=== PATIENT | female | born 1955 | race Caucasian/White ===

== ENCOUNTER 2023-05-20 19:04 | Inpatient (IN) | payer OTHER, SELFPAY ==
[2023-05-20] VITALS (22 sets, daily range): BP systolic 92–134; BP diastolic 54–77; PULSE 99–138; RESP 22–28; TEMP 36.6–38.6; O2SAT 88–94; BMI 24.0; BMI 22.6
--- NOTE | 2023-05-20 19:34 | CRLHL7_ITS ---
For Patients: As a result of the Cures Act, medical imaging exams and procedure reports are released immediately into your electronic medical record. You may view this report before your referring provider. If you have questions, please contact your health care provider. INDICATION: Cough, fever, shortness of breath TECHNIQUE: Chest 2 view. Permanently recorded images are archived. COMPARISON: None. FINDINGS: Cardiovascular and mediastinum: Atherosclerotic thoracic aorta. Normal heart size. Lungs and pleural spaces: Patchy area of consolidation is left lower lobe and also likely in the lingula and right middle lobe. No definite pleural effusion. No pneumothorax. Bones and soft tissues: Unremarkable for age. IMPRESSION: Left lower lobe, and likely lingular and right middle lobe, pneumonia. Recommend follow-up imaging after treatment to ensure resolution. Dictated by Xiang Lee MD @ 05/20/2023 8:23:26 PM (Electronically Signed)
--- NOTE | 2023-05-20 19:39 | ED.GENADULT ---
HPI - General Adult General Chief complaint: Shortness of Breath/Dyspnea Stated complaint: Shortness of breath, 88 ox sat. Time Seen by Provider: 05/20/23 19:24 History of Present Illness HPI narrative: This 67-year-old female comes in with cough, shortness of breath, and tachycardia. She arrives also with a fever and a temperature of 101.5? F. She states that she began to feel ill a week ago. Prior to this she was in good health other than chronic lymphocytic leukemia. She arrives with oximetry at 88% on room air. With nasal cannula oxygen she improved just a little bit to to 90% oximetry. She continues to have tachycardia with heart rate around 135-140 beats per minute. She does not describe any chest pain. Related Data Allergies Allergy/AdvReac Type Severity Reaction Status Date / Time No Known Drug Allergies Allergy Verified 05/20/23 19:20 Review of Systems Status of ROS: Reports: 10 or more systems reviewed and unremarkable except as noted in History and below Narrative: Constitutional: No weight gain or loss. Eyes: No discharge. No vision changes. HENT: No congestion, no sore throat, no ear pain. Cardiovascular: No chest pain, no palpitations. Respiratory: Cough and shortness of breath. Gastrointestinal: No abdominal pain, no vomiting, no diarrhea. Genitourinary: No dysuria, no hematuria. Musculoskeletal: Normal range of motion. Skin: No rashes, no pruritis. Neurological: No dizziness, weakness, sensory change, speech change. Endo/Heme/Allergies: No bruising or bleeding. No polydipsia. Pysch: no suicidality, no anxiety, no insomnia. All other systems reviewed and are negative. Exam Narrative: Exam Narrative: Constitutional: Well-developed, well-nourished, no acute distress. HEENT: Normocephalic, atraumatic. Neck: Normal range of motion. Nontender. Supple. Heart: Regular. No murmurs. Tachycardia Intact distal pulses. Lungs: Clear to auscultation. No chest discomfort. No wheezes, rhonchi, or rales. Respiratory rate 24. Abdomen: Normal bowel sounds. Nontender. No rebound tenderness. Genitalia: Deferred. Back: No midline tenderness. Normal range of motion. Extremities: Normal range of motion. No injury. Skin: Intact. No rash. Warm. No erythema or pallor. Neurologic: No altered sensation. No weakness. Alert and oriented. Psychiatric: No suicidality. No anxiety or depression. No insomnia. Nursing notes and vitals signs are reviewed. Const: Vital Signs, click to edit/add: Vital Signs - 24 hr 05/20/23 19:15 05/20/23 19:31 05/20/23 20:06 Temperature 101.5 F H Pulse Rate 135 H Pulse Rate [Pulse Oximeter] 138 H Respiratory Rate 24 26 H Blood Pressure Blood Pressure [Ri ght Upper Arm] 134/77 123/66 Pulse Oximetry 91 88 91 Oxygen Delivery Me thod Room Air Nasal Cannula Oxygen Flow Rate 2 05/20/23 20:10 05/20/23 20:25 05/20/23 20:30 Temperature Pulse Rate 122 H Pulse Rate [Pulse Oximeter] Respiratory Rate 26 H Blood Pressure Blood Pressure [Ri ght Upper Arm] Pulse Oximetry 90 89 90 Oxygen Delivery Me thod Nasal Cannula Nasal Cannula Oxygen Flow Rate 3 3 05/20/23 20:31 05/20/23 20:41 05/20/23 20:44 Temperature Pulse Rate 123 H 118 H 115 H Pulse Rate [Pulse Oximeter] Respiratory Rate Blood Pressure 94/57 L 92/55 L 103/57 L Blood Pressure [Ri ght Upper Arm] Pulse Oximetry 90 88 90 Oxygen Delivery Me thod Oxygen Flow Rate 05/20/23 20:45 05/20/23 20:47 05/20/23 20:50 Temperature 100.5 F H Pulse Rate 114 H Pulse Rate [Pulse Oximeter] Respiratory Rate 24 Blood Pressure Blood Pressure [Ri ght Upper Arm] Pulse Oximetry 89 90 Oxygen Delivery Me thod Nasal Cannula Oxygen Flow Rate 4 05/20/23 20:55 Temperature Pulse Rate Pulse Rate [Pulse Oximeter] Respiratory Rate 24 Blood Pressure Blood Pressure [Ri ght Upper Arm] Pulse Oximetry 92 Oxygen Delivery Me thod OxyMask Oxygen Flow Rate 8 Course Vital Signs Vital signs: Initial Vital Signs Temperature 101.5 F H 05/20/23 19:15 Temperature Source Temporal Artery Scan 05/20/23 19:15 Pulse Rate 138 H 05/20/23 19:15 Pulse Rhythm Regular 05/20/23 19:15 Respiratory Rate 24 05/20/23 19:15 Blood Pressure 134/77 05/20/23 19:15 Blood Pressure Mean 96 05/20/23 19:15 Pulse Oximetry 91 05/20/23 19:15 Oxygen Delivery Method Room Air 05/20/23 19:15 Vital Signs Temperature 101.5 F H 05/20/23 19:15 Pulse Rate 138 H 05/20/23 19:15 Respiratory Rate 24 05/20/23 19:15 Blood Pressure 134/77 05/20/23 19:15 Pulse Oximetry 91 05/20/23 19:15 Oxygen Delivery Method Room Air 05/20/23 19:15 Temperature 100.5 F H 05/20/23 20:50 Pulse Rate 114 H 05/20/23 20:45 Respiratory Rate 24 05/20/23 20:55 Blood Pressure 103/57 L 05/20/23 20:44 Pulse Oximetry 92 05/20/23 20:55 Oxygen Delivery Method OxyMask 05/20/23 20:55 Oxygen Flow Rate 8 05/20/23 20:55 Medical Decision Making MDM Narrative Medical decision making narrative: This patient arrives with shortness of breath and fever. She does smoke half a pack a day. Her oximetry on room air initially was at around 88 89% with tachycardia. With 4 L nasal cannula she improved to around 90% but her heart rate has decreased to around 110 beats per minute. An IV is established where she did receive a L of normal saline and labs are acquired. Her white count is excessively high due to his CLL. Chest x-ray does show sign of infiltrate bilaterally. I spoke with the hospitalist specialty finishing utility person, Dr. Elizondo, who agrees to her admission and requested CT imaging of her chest. This result is pending at the end of my shift as are some other lab results including lactate, blood cultures, and metabolic panel. After blood cultures are acquired the patient received IV doses of Rocephin and Zithromax. She did also receive a L of normal saline intravenously and will be ruled out for sepsis according to guidelines. Lab Data Labs: Lab Results 05/20/23 05/20/23 05/20/23 Range/Units 19:35 20:00 20:50 WBC 106.77 H* (4.50-11.00) K/uL RBC 4.12 (4.00-5.20) m/uL Hgb 13.3 (12.0-16.0) gm/dL Hct 41.2 (33.0-51.0) % MCV 100 (80-100) fL MCH 32 (26-34) pg MCHC 32 (32-36) gm/dL RDW Coeff of Hien 14.1 (11.5-15.5) % Plt Count 158 (140-440) K/uL Neut % (Auto) 5.5 L (42.0-72.0) % Lymph % (Auto) 94.1 H (20-44) % [place] % (Auto) 0.3 (0.0-11.0) % Eos % (Auto) 0.0 (0.0-7.0) % Baso % (Auto) 0.0 (0.0-3.0) % Neut # (Auto) 5.90 (1.7-7.0) K/uL Lymph # (Auto) 100.50 H (0.90-2.90) K/uL [place] # (Auto) 0.30 (0.00-0.90) K/UL Eos # (Auto) 0.00 (0.00-0.50) K/uL Baso # (Auto) 0.00 (0.00-0.30) K/uL Abs Immat Gran (auto) 0.10 (0.00-0.30) K/uL Imm/Tot Granulo (auto) 0.1 % Sodium 130 L (135-149) mmol/L Potassium 3.4 L (3.6-5.1) mmol/L Chloride 98 (96-114) mmol/L Carbon Dioxide 18 L (20-32) mmol/L Anion Gap 14 (7-15) mEq/L BUN 29 (7-30) mg/dL Creatinine 1.2 (0.5-1.5) mg/dL Estimated Creat Clear 45.26 Estimated GFR 49 ml/min Glucose 184 H (60-115) mg/dL Lactate 1.0 (0.5-1.9) mmol/L Calcium 8.6 (8.4-10.6) mg/dL C-Reactive Protein 8.8 H (0.5-1.0) mg/dL POC Troponin I 0.00 L (0.01-0.04) ng/ml ECG Data Attestation: I personally reviewed and interpreted this ECG as follows: Interpretation: Sinus tachycardia, rate 137 beats per minute. Incomplete right bundle-branch block. There are no specific ST or T-wave abnormalities. Discharge Plan Discharge Clinical Impression: Chronic lymphocytic leukemia, Hypoxia, Pneumonia Patient Disposition: Admitted As Inpatient Condition: Unchanged Follow Up/Referrals: Provider,Not a Local [Primary Care Provider] -
[2023-05-20] MEDS: ACETAMINOPHEN 500 MG TABLET 1000 MG PO (19:56)
[2023-05-20 20:15] LABS: Hematocrit 41.2 % (33.0-51.0); Hemoglobin* 13.3 gm/dL (12.0-16.0); Immature Granulocytes Pct Auto 0.1 %; Lymphocytes Percent Auto 94.1 % (20-44); Mean Corpuscular HGB Conc 32 gm/dL (32-36); Mean Corpuscular Hemoglobin 32 pg (26-34); Mean Corpuscular Volume 100 fL (80-100); Monocytes Percent Auto 0.3 % (0.0-11.0); Neutrophils Percent Auto 5.5 % (42.0-72.0); Platelet Count* 158 K/uL (140-440); RDW Coefficient of Variation % 14.1 % (11.5-15.5); Red Blood Count 4.12 m/uL (4.00-5.20)
[2023-05-20 20:18] LABS: Slide Review Reflex Yes
[2023-05-20 20:19] LABS: White Blood Count* 106.77 K/uL (4.50-11.00)
[2023-05-20 20:41] LABS: Chloride* 98 mmol/L (96-114); Potassium* 3.4 mmol/L (3.6-5.1); Sodium* 130 mmol/L (135-149)
[2023-05-20 20:43] LABS: Creatinine* 1.2 mg/dL (0.5-1.5); Est. Creatinine Clearance* 45.26; Estimated Glomerular Filt Rate 49 ml/min
[2023-05-20 20:44] LABS: Anion Gap 14 mEq/L (7-15); Blood Urea Nitrogen* 29 mg/dL (7-30); Carbon Dioxide* 18 mmol/L (20-32); Glucose* 184 mg/dL (60-115)
[2023-05-20 20:45] LABS: Calcium* 8.6 mg/dL (8.4-10.6)
[2023-05-20 20:47] LABS: C Reactive Protein* 8.8 mg/dL (0.5-1.0)
--- NOTE | 2023-05-20 20:56 | CRLHL7_ITS ---
For Patients: As a result of the Century Cures Act, medical imaging exams and procedure reports are released immediately into your electronic medical record. You may view this report before your referring provider. If you have questions, please contact your health care provider. INDICATION: Shortness of breath. TECHNIQUE: CT chest PE was acquired with 95 cc Isovue 370 IV contrast. Permanently recorded images are archived. COMPARISON: None. FINDINGS: Heart and vasculature: Contrast opacification of the pulmonary arterial tree is adequate. No sign of pulmonary embolism. Heart size is normal. Thoracic aorta and pulmonary artery are normal in caliber. Lungs and pleura: Subsegmental atelectasis within the medial right middle lobe and inferior lingula. Patchy consolidation in the right lower lobe. No pleural effusion or pneumothorax. Diffuse bronchial wall thickening in the lung bases with foci of mucous plugging. No pleural effusions or pneumothorax. Lymph nodes/mediastinum: Prominent bihilar and mediastinal lymph nodes. No pathologically enlarged lymph nodes. Chest wall: No masses. Thyroid: Unremarkable. Upper abdomen: No acute or significant findings. 2 cm masslike thickening of the left adrenal gland likely represents a lipid rich adenoma. Bones: Unremarkable for age. IMPRESSION: No pulmonary embolism. Patchy consolidation in the right lower lobe compatible with pneumonia. Diffuse bronchial wall thickening in the lung bases, with foci of mucous plugging, compatible with bronchitis. Subsegmental atelectasis within the medial right middle lobe and inferior lingula, possibly sequela of chronic atypical infection. Please note that all CT scans at this facility use dose modulation, iterative reconstruction, and/or weight-based dosing when appropriate to reduce radiation dose to as low as reasonably achievable. Dictated by Xiang Lee MD @ 05/20/2023 10:06:36 PM (Electronically Signed)
[2023-05-20 21:08] LABS: PCR FLU A Negative PCR FLU A (Negative); PCR FLU B Negative PCR FLU B (Negative); PCR RSV Negative PCR RSV (Negative)
[2023-05-20 21:11] LABS: SARS PCR* Negative SARS-CoV-2 (Negative)
[2023-05-20 21:12] LABS: Slide Review Acceptable Review (Acceptable)
[2023-05-20 21:23] LABS: D Dimer Quantitative* > 20.00 ug/ml (0.00-0.50)
[2023-05-20] MEDS: 0.9 % SODIUM CHLORIDE 1000 ml 1,000 ML IV (21:33)
[2023-05-20] MEDS: cefTRIAXone 1 GM in 0.9 % SODIUM CHLORIDE Mini-bag 100 ML IVPB (21:33)
--- NOTE | 2023-05-20 21:57 | ED.NURSE ---
ER MD O2 sat goal 90s, pt maintained SpO2 >90, currently requiring 5L oxymask. Report given to Med surg. IV infusing
--- NOTE | 2023-05-20 22:42 | P.IMHP_ITS ---
Hospitalist- H&P: HPI History of Present Illness Time Seen by Provider: 22:00 Date Seen: 05/20/23 Chief complaint: Shortness of breath, hypoxic Narrative: Muriel Gutierrez is a 67 year old woman presents to the emergency department for assessment of productive cough, shortness of breath, fatigue has been evolving for the past 4 days. Has not had hemoptysis. Describes mucopurulent sputum production. Fatigues easily. Has been more sleepy. Has dyspnea with moderate exertion, which is unusual for her. She lives in [facility], in town of [place]. Her daughter and son-in-law, who live in [place], are currently traveling vacationing in [facility], for their wedding anniversary. The patient and her are taking care of their grandchildren while there parents are on their anniversary vacation. Her daughter and son-in-law will be returning home on 05/23/2023. This past 05/17/2023, she had the onset of the illness briefly described above. Her symptoms have been getting worse since. Yesterday also had chills without fever. On arrival to emergency department she does have a fever with a temperature of a 101.5? F. No recent illnesses or travel. No exposure to animals, including birds. Review of Systems Status of ROS: Reports: 10 or more systems reviewed and unremarkable except as noted in History and below Narrative: Denies angina or anginal equivalent, syncope or near syncope, orthostasis, lightheadedness, dizziness, or vertigo. Denies nausea or vomiting. Appetite has been decreased over the last few days with increasing illness. Denies abdominal pain. Bowel and bladder function are satisfactory. Denies myalgias or arthralgias. Denies rashes. Denies dysuria, urgency, frequency, hematuria. Denies constipation or diarrhea. Not exposed to others with illness. Patient has known chronic lymphocytic leukemia. Follows with a carpenter repair at the [facility] in [place], [place], and has not received any treatment for this. Her white blood cell count as typically been running between 80,000 and 90,000. [facility] Medical History (Updated 05/20/23 @ 23:04 by Edward Elizondo MD) Low back pain ?M54.50 - Low back pain, unspecified (ICD-10) Tobacco dependence ?F17.200 - Nicotine dependence, unspecified, uncomplicated (ICD-10) Chronic lymphocytic leukemia ?C91.10 - Chronic lymphocytic leukemia of B-cell type not having achieved remission (ICD-10) Social History Narrative: 05/20/2023: Lives in [facility]. Visiting family in [place], [place]. Lives with , Xiang, whom she designates as POA for health should that be warranted, . Requests full resuscitation efforts in event of cardiopulmonary demise. Smoking Status: Current every day smoker What tobacco products do you use: cigarettes Smoking packs per day: 0.5 Smoking cigarettes per day: 10.0 Second hand tobacco smoke exposure: Yes How often do you have a drink containing alcohol: never AUDIT-C Alcohol total score: 0 Non-prescribed substance use: denies use Meds Home Medications and Allergies Home Medication Comments: Acetaminophen p.r.n. low back pain Allergies Allergy/AdvReac Type Severity Reaction Status Date / Time No Known Drug Allergies Allergy Verified 05/20/23 19:20 Exam Narrative: Exam Narrative: I see her in her hospital room. She appears worn out, but comfortable and in no acute distress. Has an OxyMask with oxygen flowing at 5 liters/minute and saturations of 91-93% at rest. Vision and hearing are grossly normal. Alert and oriented to self, place, time, situation. Articulate, cooperative, friendly. Mood and affect are congruent. No icterus or conjunctival injection. Physically round and reactive to light and accommodation. Conjugate gaze. Extraocular muscles are intact. Midline nasal septum. Dry buccal mucosa. Dentition in fair repair. Neck is supple. Midline trachea. No head and neck lymphadenopathy. Varus shaped chest. Lungs with coarse rales on the right base and moderate rales in the left mid lung, scattered rhonchi, no wheezing. Chest wall excursions are full with respiratory efforts. No CVA tenderness. Heart tones with regular rhythm, normal S1-S2, without murmur, gallop, or rub. Abdomen with active bowel sounds, soft, nontender. Extremities without edema. Moves all 4 extremities. No tremor, asterixis or ataxia. Range of motion of upper and lower extremities are full. Skin is dry and intact. No rashes, petechiae, cyanosis. Const: Vital Signs, click to edit/add: Vital Signs - 24 hr 05/20/23 19:15 05/20/23 19:31 05/20/23 20:06 Temperature 101.5 F H Pulse Rate 135 H Pulse Rate [Pulse Oximeter] 138 H Respiratory Rate 24 26 H Blood Pressure Blood Pressure [Ri t Upper Arm] 134/77 123/66 Pulse Oximetry 91 88 91 Oxygen Delivery Me thod Room Air Nasal Cannula Oxygen Flow Rate 2 05/20/23 20:10 05/20/23 20:25 05/20/23 20:30 Temperature Pulse Rate 122 H Pulse Rate [Pulse Oximeter] Respiratory Rate 26 H Blood Pressure Blood Pressure [Ri t Upper Arm] Pulse Oximetry 90 89 90 Oxygen Delivery Me thod Nasal Cannula Nasal Cannula Oxygen Flow Rate 3 3 05/20/23 20:31 05/20/23 20:41 05/20/23 20:44 Temperature Pulse Rate 123 H 118 H 115 H Pulse Rate [Pulse Oximeter] Respiratory Rate Blood Pressure 94/57 L 92/55 L 103/57 L Blood Pressure [Ri t Upper Arm] Pulse Oximetry 90 88 90 Oxygen Delivery Me thod Oxygen Flow Rate 05/20/23 20:45 05/20/23 20:47 05/20/23 20:50 Temperature 100.5 F H Pulse Rate 114 H Pulse Rate [Pulse Oximeter] Respiratory Rate 24 Blood Pressure Blood Pressure [Ri t Upper Arm] Pulse Oximetry 89 90 Oxygen Delivery Me thod Nasal Cannula Oxygen Flow Rate 4 05/20/23 20:55 05/20/23 21:00 05/20/23 21:00 Temperature Pulse Rate 108 H Pulse Rate [Pulse Oximeter] Respiratory Rate 24 Blood Pressure Blood Pressure [Ri t Upper Arm] Pulse Oximetry 92 90 90 Oxygen Delivery Me thod OxyMask OxyMask Oxygen Flow Rate 8 5 05/20/23 21:01 05/20/23 21:26 05/20/23 21:30 Temperature Pulse Rate 109 H 102 H 100 Pulse Rate [Pulse Oximeter] Respiratory Rate Blood Pressure 96/55 L Blood Pressure [Ri ght Upper Arm] Pulse Oximetry 90 92 93 Oxygen Delivery Me thod Oxygen Flow Rate 05/20/23 21:32 Temperature Pulse Rate 99 Pulse Rate [Pulse Oximeter] Respiratory Rate Blood Pressure 95/60 Blood Pressure [Ri ght Upper Arm] Pulse Oximetry 93 Oxygen Delivery Me thod Oxygen Flow Rate Documenting provider has reviewed patient's vital signs: yes Hospitalist - H&P: Result Labs Labs: Short CBC 05/20/23 Range/Units 20:00 WBC 106.77 H* (4.50-11.00) K/uL Hgb 13.3 (12.0-16.0) gm/dL Hct 41.2 (33.0-51.0) % Plt Count 158 (140-440) K/uL BMP 05/20/23 20:00 Sodium 130 L Potassium 3.4 L Chloride 98 Carbon Dioxide 18 L BUN 29 Creatinine 1.2 Glucose 184 H Calcium 8.6 ECG Attestation: I personally reviewed and interpreted this ECG as follows: ECG interpretation date: 05/20/23 ECG interpretation time: 22:00 Prior ECG tracings: not available for review Interpretation: Sinus tachycardia without ischemic changes. Imaging Chest x-ray: Attestation: I have reviewed the pertinent imaging results. Radiologist's impression: IMPRESSION: Left lower lobe, and likely lingular and right middle lobe, pneumonia. Recommend follow-up imaging after treatment to ensure resolution. CT scan - chest: Attestation: I have reviewed the pertinent imaging results. Radiologist's impression: IMPRESSION: No pulmonary embolism. Patchy consolidation in the right lower lobe compatible with pneumonia. Diffuse bronchial wall thickening in the lung bases, with foci of mucous plugging, compatible with bronchitis. Subsegmental atelectasis within the medial right middle lobe and inferior lingula, possibly sequela of chronic atypical infection. Assessment and Plan Assessment and plan (1) Acute hypoxic respiratory failure: Problem comment: - differential diagnosis: COPD with community-acquired pneumonia - oxygen supplementation Status: Acute (2) Pneumonia: Problem comment: - community-acquired pneumonia treatment protocol with ceftriaxone and azithromycin started 05/20/2023 Status: Acute (3) Chronic obstructive pulmonary disease (COPD) suggested by initial evaluation: Problem comment: - ipratropium bromide and albuterol nebulizer therapy initiated - Aer[employer] device - respiratory therapy consult Status: Acute (4) Tobacco dependence: Problem comment: - 05/20/2023: 1/2 ppd for 40 years, actively smoking still. - nicotine patch and nicotine gum while in hospital Status: Acute (5) Chronic lymphocytic leukemia: Problem comment: - obtain outside medical records - monitor while in hospital - I am postulating that the current rise in the white blood cell count is in part related to the acute infection and also in part related to the dehydrated state. Both will be treated. Status: Acute (6) Dehydration: Problem comment: - gentle IV hydration - will check orthostatic blood pressures and pulses in the morning of 05/21/2023 - daily weights Status: Acute Plan 1. Reviewed my impression with the patient. 2. Answered her questions. 3. Patient is agreeable with above stated plans and recommendations.
[2023-05-20] MEDS: AZITHROMYCIN 100 MG/ML inj 500 MG IVPB (22:55)
[2023-05-21] VITALS (33 sets, daily range): BP systolic 91–142; BP diastolic 49–89; PULSE 57–129; RESP 24–30; TEMP 36.7–38.6; O2SAT 88–97
[2023-05-21] MEDS: ENOXAPARIN 40 MG/0.4 ML INJ SUBCUT (00:14)
[2023-05-21] MEDS: NICOTINE 14 mg PATCH 1 PATCH TRANSDERMA ×2 (00:14→19:52)
[2023-05-21] MEDS: IPRAT-ALBUT 0.5-2.5 MG/3 ML NEB 1 NEB IH ×5 (00:16→19:52)
--- NOTE | 2023-05-21 02:34 | PC.NURSE ---
Up to BR w/SBA. Tachypneic upper 20's to low 30's. States her breathing feels, much better since being admitted. VSS. Oxygen is being titrated between 3-4lpm oxymask to keep sats 90-94%. Denies pain.
[2023-05-21 06:31] LABS: HCO3 VBG 19 mmol/L (21-28); Lactate* 1.2 mmol/L (0.5-1.9); PCO2 VBG 29 mmHG (40-50); PO2 VBG 28.2 mmHG (25-47); pH VBG 7.428 (7.32-7.43)
[2023-05-21 06:45] LABS: Hematocrit 37.7 % (33.0-51.0); Hemoglobin* 12.2 gm/dL (12.0-16.0); Immature Granulocytes Pct Auto 0.1 %; Lymphocytes Percent Auto 94.4 % (20-44); Mean Corpuscular HGB Conc 32 gm/dL (32-36); Mean Corpuscular Hemoglobin 32 pg (26-34); Mean Corpuscular Volume 99 fL (80-100); Monocytes Percent Auto 0.5 % (0.0-11.0); Platelet Count* 128 K/uL (140-440)
[2023-05-21 07:13] LABS: Chloride* 103 mmol/L (96-114); Potassium* 3.8 mmol/L (3.6-5.1); Sodium* 131 mmol/L (135-149)
[2023-05-21 07:15] LABS: Creatinine* 0.8 mg/dL (0.5-1.5); Est. Creatinine Clearance* 54.32; Estimated Glomerular Filt Rate 80 ml/min
[2023-05-21 07:16] LABS: Anion Gap 11 mEq/L (7-15); Blood Urea Nitrogen* 21 mg/dL (7-30); Carbon Dioxide* 17 mmol/L (20-32)
[2023-05-21 07:17] LABS: Calcium* 7.8 mg/dL (8.4-10.6); Glucose* 121 mg/dL (60-115); Magnesium* 2.1 mg/dL (1.5-2.6); Phosphorus* 1.9 mg/dL (2.5-4.5)
[2023-05-21 07:24] LABS: Troponin I* 0.02 ng/mL (0.01-0.04)
[2023-05-21 07:33] LABS: C Reactive Protein* 20.9 mg/dL (0.5-1.0); NT Pro B Type NatriureticPept* 297 pg/mL
[2023-05-21 07:44] LABS: Thyroid Stimulating Hormone* 0.199 uIU/mL (0.270-4.20)
[2023-05-21 08:10] LABS: White Blood Count* 115.44 K/uL (4.50-11.00)
[2023-05-21 08:11] LABS: Slide Review Reflex Yes
[2023-05-21 08:24] LABS: Slide Review Acceptable Review (Acceptable)
[2023-05-21] MEDS: SODIUM CHLORIDE 0.9 % (FLUSH) 10 ML SYRINGE 5 ML IVF ×2 (09:21→20:51)
[2023-05-21 09:54] LABS: Free T4 Free Thyroxine* 1.46 ng/dL (0.70-1.85)
[2023-05-21] MEDS: METOPROLOL TARTRATE 25 MG TABLET PO (11:32)
[2023-05-21] MEDS: ACETAMINOPHEN 325 MG TABLET 650 MG PO ×2 (12:00→19:52)
--- NOTE | 2023-05-21 12:25 | P.IMPN_ITS ---
Progress Note: A&P Assessment and plan (1) Acute hypoxic respiratory failure: Problem details: This appears to be primarily pneumonia and secondarily COPD causing hypoxic respiratory failure. On high-flow nasal cannulae. Not retaining CO2. Status: Acute (2) Pneumonia: Problem details: - community-acquired pneumonia treatment protocol with ceftriaxone and azithromycin started 05/20/2023. Nasal swab for MRSA. Attention to atypical infectious causes due to immune suppression from CLL. Status: Acute (3) Chronic obstructive pulmonary disease (COPD) suggested by initial evaluation: Problem details: - ipratropium bromide and albuterol nebulizer therapy initiated - Aerobika device - respiratory therapy consult Status: Acute (4) Chronic lymphocytic leukemia: Problem details: Not neutropenic. Expected lymphocytosis Status: Acute (5) Tobacco dependence: Problem details: - 05/20/2023: 1/2 ppd for 40 years, actively smoking still. - nicotine patch and nicotine gum while in hospital Status: Acute (6) Thyroid function test abnormal: Problem details: Mildly suppressed TSH with normal free T4. Likely due to acute illness. Outpatient follow-up. Status: Acute (7) Abnormal EKG: Problem details: ST depression with sinus tachycardia. Normal troponin and pro-BNP. No previous electrocardiogram to compare. Obtain echo. Low-dose metoprolol. Follow. Status: Acute Plan Continue in hospital for management of hypoxic respiratory failure from pneumonia in the context of other chronic medical problems, CLL and COPD. Time Spent With Patient Total time spent: Total time spent today is 55 minutes, 35 minutes in coordination of care discussing with patient, and other providers management of pneumonia, COPD, CLL Subjective Date Seen: 05/21/23 Interval history: 59-year-old female admitted to the hospital with severe cough and acute dyspnea. Starting last week she reportedly had a cold. Over the subsequent several days her coughing and shortness of breath got worse. She developed fever and chills. Yesterday she came to the emergency room because of this. On admission she was found to have bibasilar pneumonia on chest x-ray and chest CT. No PE. Negative testing for COVID, influenza, RSV on admission. Patient has CLL and is followed by Oncology. Her white count has been around 90,000 for a long time by her report. She is not receiving any treatment, only ongoing monitoring every 6 months. She tells me she has emphysema. It is not clear if this is a medical diagnosis. She has never been treated with inhaled bronchodilators. She does continue to smoke cigarettes. She is not aware of any history of heart disease, coronary disease, chest pain, dysrhythmia. She is unaware of any cardiac risk factors. She tells me she does not have a regular primary care provider. She has had exposure to her grandchildren, and 1 of them has been ill with a prolonged upper respiratory illness. She has been spending time in [facility] where she lives with her as well as traveling around [place] visiting her children and grandchildren. No other obvious exposures. Today she reports feeling much better. She has transitioned from oxygen by face mask to high-flow nasal cannula. She is not retaining CO2. Exam Narrative: Exam Narrative: She is alert and appears in mild respiratory distress with increased rate and work of breathing. She is able to carry on a conversation. Oropharynx with dry mucous membranes. Otherwise normal. Neck is supple without mass or adenopathy. No jugular venous distension. Respirations with decreased breath sounds. Bibasilar crackles. No marked wheezing. Mildly prolonged expiratory phase. Cardiovascular: S1, S2, regular tachycardia. No murmur gallop or rub. Abdomen: Bowel sounds active. Abdomen is soft without tenderness or mass. Extremities without edema. No rash. Const: Vital Signs, click to edit/add: Vital Signs - 24 hr 05/20/23 19:15 05/20/23 19:31 05/20/23 20:06 Temperature 101.5 F H Pulse Rate 135 H Pulse Rate [Pulse Oximeter] 138 H Respiratory Rate 24 26 H Blood Pressure Blood Pressure [Ri ght Radial Artery] Blood Pressure [Ri ght Upper Arm] 134/77 123/66 Pulse Oximetry 91 88 91 Oxygen Delivery Me thod Room Air Nasal Cannula Oxygen Flow Rate 2 Fraction of Inspir ed Oxygen 05/20/23 20:10 05/20/23 20:25 05/20/23 20:30 Temperature Pulse Rate 122 H Pulse Rate [Pulse Oximeter] Respiratory Rate 26 H Blood Pressure Blood Pressure [Ri ght Radial Artery] Blood Pressure [Ri ght Upper Arm] Pulse Oximetry 90 89 90 Oxygen Delivery Me thod Nasal Cannula Nasal Cannula Oxygen Flow Rate 3 3 Fraction of Inspir ed Oxygen 05/20/23 20:31 05/20/23 20:41 05/20/23 20:44 Temperature Pulse Rate 123 H 118 H 115 H Pulse Rate [Pulse Oximeter] Respiratory Rate Blood Pressure 94/57 L 92/55 L 103/57 L Blood Pressure [Ri ght Radial Artery] Blood Pressure [Ri ght Upper Arm] Pulse Oximetry 90 88 90 Oxygen Delivery Me thod Oxygen Flow Rate Fraction of Inspir ed Oxygen 05/20/23 20:45 05/20/23 20:47 05/20/23 20:50 Temperature 100.5 F H Pulse Rate 114 H Pulse Rate [Pulse Oximeter] Respiratory Rate 24 Blood Pressure Blood Pressure [Ri ght Radial Artery] Blood Pressure [Ri ght Upper Arm] Pulse Oximetry 89 90 Oxygen Delivery Me thod Nasal Cannula Oxygen Flow Rate 4 Fraction of Inspir ed Oxygen 05/20/23 20:55 05/20/23 21:00 05/20/23 21:00 Temperature Pulse Rate 108 H Pulse Rate [Pulse Oximeter] Respiratory Rate 24 Blood Pressure Blood Pressure [Ri ght Radial Artery] Blood Pressure [Ri ght Upper Arm] Pulse Oximetry 92 90 90 Oxygen Delivery Me thod OxyMask OxyMask Oxygen Flow Rate 8 5 Fraction of Inspir ed Oxygen 05/20/23 21:01 05/20/23 21:26 05/20/23 21:30 Temperature Pulse Rate 109 H 102 H 100 Pulse Rate [Pulse Oximeter] Respiratory Rate Blood Pressure 96/55 L Blood Pressure [Ri ght Radial Artery] Blood Pressure [Ri ght Upper Arm] Pulse Oximetry 90 92 93 Oxygen Delivery Me thod Oxygen Flow Rate Fraction of Inspir ed Oxygen 05/20/23 21:32 05/20/23 22:02 05/20/23 22:02 Temperature 98 F Pulse Rate 99 Pulse Rate [Pulse Oximeter] 100 Respiratory Rate 22 22 Blood Pressure 95/60 Blood Pressure [Ri ght Radial Artery] 99/64 Blood Pressure [Ri ght Upper Arm] Pulse Oximetry 93 93 92 Oxygen Delivery Me thod OxyMask OxyMask Oxygen Flow Rate 4 4 Fraction of Inspir ed Oxygen 05/20/23 23:30 05/20/23 23:45 05/20/23 23:49 Temperature 98.6 F Pulse Rate Pulse Rate [Pulse Oximeter] 104 H 104 H Respiratory Rate 28 H 28 H Blood Pressure Blood Pressure [Ri ght Radial Artery] 97/54 L Blood Pressure [Ri ght Upper Arm] Pulse Oximetry 93 94 Oxygen Delivery Me thod OxyMask Oxygen Flow Rate 4 Fraction of Inspir ed Oxygen 05/21/23 01:24 05/21/23 01:47 05/21/23 02:12 Temperature Pulse Rate 116 H Pulse Rate [Pulse Oximeter] 103 H Respiratory Rate 30 H 30 H Blood Pressure Blood Pressure [Ri ght Radial Artery] 142/64 H Blood Pressure [Ri ght Upper Arm] Pulse Oximetry 93 90 Oxygen Delivery Me thod OxyMask OxyMask Oxygen Flow Rate 4 3 Fraction of Inspir ed Oxygen 05/21/23 03:19 05/21/23 03:30 05/21/23 03:45 Temperature Pulse Rate 122 H 110 H 115 H Pulse Rate [Pulse Oximeter] Respiratory Rate Blood Pressure Blood Pressure [Ri ght Radial Artery] Blood Pressure [Ri ght Upper Arm] Pulse Oximetry 88 91 89 Oxygen Delivery Me thod Oxygen Flow Rate Fraction of Inspir ed Oxygen 05/21/23 04:00 05/21/23 04:11 05/21/23 04:15 Temperature 98.6 F Pulse Rate 102 H 113 H 109 H Pulse Rate [Pulse Oximeter] Respiratory Rate 28 H Blood Pressure 113/54 L Blood Pressure [Ri ght Radial Artery] Blood Pressure [Ri ght Upper Arm] Pulse Oximetry 93 88 92 Oxygen Delivery Me thod OxyMask Oxygen Flow Rate 4 Fraction of Inspir ed Oxygen 05/21/23 04:22 05/21/23 04:26 05/21/23 04:30 Temperature 98.6 F Pulse Rate 107 H 117 H Pulse Rate [Pulse Oximeter] 57 L Respiratory Rate 28 H Blood Pressure Blood Pressure [Ri ght Radial Artery] 113/54 L Blood Pressure [Ri ght Upper Arm] Pulse Oximetry 95 Oxygen Delivery Me thod Oxygen Flow Rate Fraction of Inspir ed Oxygen 05/21/23 04:45 05/21/23 05:00 05/21/23 05:15 Temperature Pulse Rate 110 H 113 H 119 H Pulse Rate [Pulse Oximeter] Respiratory Rate Blood Pressure Blood Pressure [Ri ght Radial Artery] Blood Pressure [Ri ght Upper Arm] Pulse Oximetry 96 97 95 Oxygen Delivery Me thod Oxygen Flow Rate Fraction of Inspir ed Oxygen 05/21/23 05:30 05/21/23 05:45 05/21/23 06:00 Temperature Pulse Rate 125 H 127 H 125 H Pulse Rate [Pulse Oximeter] Respiratory Rate Blood Pressure Blood Pressure [Ri ght Radial Artery] Blood Pressure [Ri ght Upper Arm] Pulse Oximetry 92 94 93 Oxygen Delivery Me thod Oxygen Flow Rate Fraction of Inspir ed Oxygen 05/21/23 06:15 05/21/23 06:31 05/21/23 07:00 Temperature Pulse Rate 123 H 129 H Pulse Rate [Pulse Oximeter] 112 H Respiratory Rate 28 H Blood Pressure Blood Pressure [Ri ght Radial Artery] Blood Pressure [Ri ght Upper Arm] Pulse Oximetry 92 89 Oxygen Delivery Me thod Oxygen Flow Rate Fraction of Inspir ed Oxygen 05/21/23 07:00 05/21/23 07:00 05/21/23 09:22 Temperature 98.8 F Pulse Rate Pulse Rate [Pulse Oximeter] 112 H Respiratory Rate 28 H 28 H Blood Pressure Blood Pressure [Ri ght Radial Artery] 112/61 Blood Pressure [Ri ght Upper Arm] Pulse Oximetry 91 91 Oxygen Delivery Me thod OxyMask OxyMask Oxygen Flow Rate 4 4 30 Fraction of Inspir ed Oxygen 40 05/21/23 11:00 05/21/23 11:00 05/21/23 12:00 Temperature 99.7 F H 99.7 F H Pulse Rate Pulse Rate [Pulse Oximeter] 106 H Respiratory Rate 28 H Blood Pressure Blood Pressure [Ri ght Radial Artery] 104/60 Blood Pressure [Ri ght Upper Arm] Pulse Oximetry 90 Oxygen Delivery Me thod High Flow Nasal Ca nnula Oxygen Flow Rate 30 Fraction of Inspir ed Oxygen 40 40 Documenting provider has reviewed patient's vital signs: yes Labs Labs: Laboratory Results - last 24 hr 05/20/23 05/20/23 05/20/23 19:35 20:00 20:18 WBC 106.77 H* RBC 4.12 Hgb 13.3 Hct 41.2 MCV 100 MCH 32 MCHC 32 RDW Coeff of Hien 14.1 Plt Count 158 Neut % (Auto) 5.5 L Lymph % (Auto) 94.1 H [place] % (Auto) 0.3 Eos % (Auto) 0.0 Baso % (Auto) 0.0 Neut # (Auto) 5.90 Lymph # (Auto) 100.50 H [place] # (Auto) 0.30 Eos # (Auto) 0.00 Baso # (Auto) 0.00 Abs Immat Gran (auto) 0.10 Imm/Tot Granulo (auto) 0.1 Diff Slide Review Acceptable Review D-Dimer Quant (PE/DVT) > 20.00 H VBG pH VBG pCO2 VBG pO2 VBG HCO3 Sodium 130 L Potassium 3.4 L Chloride 98 Carbon Dioxide 18 L Anion Gap 14 BUN 29 Creatinine 1.2 Estimated Creat Clear 45.26 Estimated GFR 49 Glucose 184 H Lactate Calcium 8.6 Phosphorus Magnesium Troponin I C-Reactive Protein 8.8 H NT-Pro-B Natriuret Pep Procalcitonin TSH Free T4 SARS-CoV-2 (PCR) Negative SARS-CoV-2 Influenza Type A (PCR) Negative PCR FLU A Influenza Type B (PCR) Negative PCR FLU B RSV (PCR) Negative PCR RSV Lab Acknowledgement POC Troponin I 0.00 L 05/20/23 05/21/23 05/21/23 20:50 06:05 09:08 WBC 115.44 H* RBC 3.80 L Hgb 12.2 Hct 37.7 MCV 99 MCH 32 MCHC 32 RDW Coeff of Hien 14.0 Plt Count 128 L Neut % (Auto) 5.0 L Lymph % (Auto) 94.4 H [place] % (Auto) 0.5 Eos % (Auto) 0.0 Baso % (Auto) 0.0 Neut # (Auto) 5.80 Lymph # (Auto) 109.00 H [place] # (Auto) 0.60 Eos # (Auto) 0.00 Baso # (Auto) 0.00 Abs Immat Gran (auto) 0.10 Imm/Tot Granulo (auto) 0.1 Diff Slide Review Acceptable Review D-Dimer Quant (PE/DVT) VBG pH 7.428 VBG pCO2 29 L VBG pO2 28.2 VBG HCO3 19 L Sodium 131 L Potassium 3.8 Chloride 103 Carbon Dioxide 17 L Anion Gap 11 BUN 21 Creatinine 0.8 Estimated Creat Clear 54.32 Estimated GFR 80 Glucose 121 H Lactate 1.0 1.2 Calcium 7.8 L Phosphorus 1.9 L Magnesium 2.1 Troponin I 0.02 C-Reactive Protein 20.9 H NT-Pro-B Natriuret Pep 297 Procalcitonin 12.90 H TSH 0.199 L Free T4 1.46 SARS-CoV-2 (PCR) Influenza Type A (PCR) Influenza Type B (PCR) RSV (PCR) Lab Acknowledgement Test Added POC Troponin I
[2023-05-21] MEDS: cefTRIAXone 2 GM in 0.9 % SODIUM CHLORIDE Mini-bag 100 ML IVPB (16:45)
[2023-05-21] MEDS: 0.9 % SODIUM CHLORIDE 250 ml IV (16:46)
[2023-05-21] MEDS: ONDANSETRON ODT 4 MG TAB PO (17:26)
[2023-05-21] MEDS: LACTATED RINGERS 500 ML 500 ML IV (17:48)
[2023-05-21] MEDS: LACTATED RINGERS 1000 ML 1,000 ML 75 ML IV (17:57)
[2023-05-21 18:05] LABS: Fecal Occult Blood* Positive (Negative)
[2023-05-21 18:15] LABS: C.Difficile Negative (Negative); CDIFFEPI 027 PRESUMPTIVE NEGATIVE (Negative)
[2023-05-21 19:24] LABS: HCO3 VBG 16 mmol/L (21-28); PCO2 VBG 24 mmHG (40-50); PO2 VBG 39.2 mmHG (25-47); pH VBG 7.445 (7.32-7.43)
[2023-05-21 19:28] LABS: Hematocrit 36.1 % (33.0-51.0); Hemoglobin* 11.8 gm/dL (12.0-16.0); Immature Granulocytes Pct Auto 0.1 %; Lymphocytes Percent Auto 93.9 % (20-44); Mean Corpuscular HGB Conc 33 gm/dL (32-36); Mean Corpuscular Hemoglobin 32 pg (26-34); Mean Corpuscular Volume 98 fL (80-100); Monocytes Percent Auto 0.4 % (0.0-11.0); Neutrophils Percent Auto 5.6 % (42.0-72.0); Platelet Count* 93 K/uL (140-440); Red Blood Count 3.68 m/uL (4.00-5.20)
[2023-05-21 19:32] LABS: Slide Review Reflex No
--- NOTE | 2023-05-21 19:36 | PC.NURSE ---
Patient is alert and oriented x4. Patient is on high flow sating between 88-90%, FiO2 at 40, Temp 36, and flow rate L/min. Patient had a slight temp, PRN tylenol administered w/relief. Patient up to BR, simeon a reg diet but states she does not have much of an appetite. Patient up to chair for comfort, patient states it is better for her back pain.
[2023-05-21 19:39] LABS: Chloride* 102 mmol/L (96-114); Potassium* 3.2 mmol/L (3.6-5.1); Sodium* 130 mmol/L (135-149)
[2023-05-21 19:42] LABS: Anion Gap 13 mEq/L (7-15); Blood Urea Nitrogen* 19 mg/dL (7-30); Carbon Dioxide* 15 mmol/L (20-32); Creatinine* 0.8 mg/dL (0.5-1.5); Est. Creatinine Clearance* 54.32; Estimated Glomerular Filt Rate 80 ml/min
[2023-05-21 19:43] LABS: Calcium* 7.6 mg/dL (8.4-10.6); Glucose* 140 mg/dL (60-115)
[2023-05-21 19:55] LABS: Troponin I* 0.03 ng/mL (0.01-0.04)
[2023-05-21] MEDS: OMEPRAZOLE 20 MG CAPSULE DR PO (20:50)
[2023-05-21] MEDS: PANTOPRAZOLE SODIUM 40 MG INJ IVP (20:51)
[2023-05-21] MEDS: AZITHROMYCIN 250 MG TABLET 500 MG PO (22:07)
--- NOTE | 2023-05-21 22:16 | PC.NURSE ---
Lower BPs, elevated temp, pulse, & respirations. High flow- 30L, 40%FiO2. LS coarse crackles all over, especially in bases- left expiratory rhonchi. Abdominal breathing at times. Hyperactive bowel sounds- large watery dark stools x2. Occult stool sent-positive. Not taking much in orally- encouraged to eat/drink- only had a few bites of jello. 200 cc out w/ urine/stool mix. 500 cc fluid bolus given x1. Up to bathroom with assist of 1. PIV in left AC & FA- AC is SL'd w/ intermittant abx, FA w/ LR @ 75 cc/hr. Will continue to monitor, follow POC, and keep pt & family updated. Paty Saucedo RN
[2023-05-22] VITALS (55 sets, daily range): BP systolic 80–125; BP diastolic 44–96; PULSE 90–128; RESP 24–32; TEMP 35.8–39.6; O2SAT 85–97; BMI 22.4
[2023-05-22] MEDS: ACETAMINOPHEN 325 MG TABLET 650 MG PO ×4 (01:29→23:42)
[2023-05-22] MEDS: IPRAT-ALBUT 0.5-2.5 MG/3 ML NEB 1 NEB IH ×4 (01:30→16:46)
[2023-05-22] MEDS: LACTATED RINGERS 1000 ML 1,000 ML 75 ML IV ×2 (06:07→19:54)
[2023-05-22 06:26] LABS: HCO3 VBG 20 mmol/L (21-28); PCO2 VBG 36 mmHG (40-50); pH VBG 7.337 (7.32-7.43)
[2023-05-22 06:30] LABS: PO2 VBG < 20.0 mmHG (25-47)
[2023-05-22 06:32] LABS: Hematocrit 40.1 % (33.0-51.0); Hemoglobin* 12.7 gm/dL (12.0-16.0); Immature Granulocytes Pct Auto 0.1 %; Lymphocytes Percent Auto 95.4 % (20-44); Mean Corpuscular HGB Conc 32 gm/dL (32-36); Mean Corpuscular Hemoglobin 32 pg (26-34); Mean Corpuscular Volume 100 fL (80-100); Monocytes Percent Auto 0.4 % (0.0-11.0); Neutrophils Percent Auto 4.1 % (42.0-72.0); Platelet Count* 71 K/uL (140-440); RDW Coefficient of Variation % 14.1 % (11.5-15.5); Red Blood Count 4.02 m/uL (4.00-5.20)
[2023-05-22 06:38] LABS: Slide Review Reflex Yes; White Blood Count* 115.69 K/uL (4.50-11.00)
--- NOTE | 2023-05-22 06:47 | CRLHL7_ITS ---
For Patients: As a result of the Cures Act, medical imaging exams and procedure reports are released immediately into your electronic medical record. You may view this report before your referring provider. If you have questions, please contact your health care provider. INDICATION: Follow-up pneumonia. TECHNIQUE: Chest 1 views. COMPARISON: 05/20/[address] FINDINGS: Normal cardiomediastinal silhouette and pulmonary vasculature. Lungs are well inflated. Persistent bibasilar airspace opacities, which are similar in appearance compared to 05/20/2023. No new focal consolidation. No pleural effusion. No pneumothorax. No acute osseous abnormality. IMPRESSION: Similar appearance of bibasilar airspace opacities compared to 05/20/2023. Dictated by Abigail Diop MD @ 05/22/2023 8:00:07 AM (Electronically Signed)
[2023-05-22 07:07] LABS: Cholesterol* 96 mg/dL (90-199); HDL Cholesterol* 18 mg/dL (>=50); Triglycerides* 237 mg/dL (40-149)
[2023-05-22 07:09] LABS: LDL Cholesterol Calculated 31 mg/dL (<100)
[2023-05-22 07:13] LABS: Albumin* 3.5 g/dL (3.3-5.0); Chloride* 104 mmol/L (96-114)
[2023-05-22 07:14] LABS: Sodium* 134 mmol/L (135-149)
[2023-05-22 07:16] LABS: Creatinine* 0.9 mg/dL (0.5-1.5); Est. Creatinine Clearance* 54.32; Estimated Glomerular Filt Rate 70 ml/min
[2023-05-22 07:17] LABS: Alanine Aminotransferase* 47 U/L (4-35); Alkaline Phosphatase* 181 U/L (40-150); Aspartate Amino Transferase* 139 U/L (12-35); Bilirubin Total* 0.4 mg/dL (0.1-1.5); Blood Urea Nitrogen* 17 mg/dL (7-30); Carbon Dioxide* 19 mmol/L (20-32); Glucose* 97 mg/dL (60-115); Magnesium* 2.3 mg/dL (1.5-2.6); Total Protein* 6.1 g/dL (6.0-8.3)
[2023-05-22 07:19] LABS: Potassium* 2.8 mmol/L (3.6-5.1)
[2023-05-22 07:31] LABS: Anion Gap 11 mEq/L (7-15); C Reactive Protein* 22.1 mg/dL (0.5-1.0)
[2023-05-22 07:44] LABS: Slide Review Acceptable Review (Acceptable)
[2023-05-22] MEDS: POTASSIUM BICARB 25 MEQ EFFERVESCENT TAB 50 MEQ PO ×2 (08:10→09:54)
[2023-05-22] MEDS: MULTIVITAMIN/MINERALS 1 TABLET 1 TAB PO (08:23)
[2023-05-22] MEDS: OMEPRAZOLE 20 MG CAPSULE DR PO ×2 (08:23→20:53)
[2023-05-22] MEDS: THIAMINE 100 MG TABLET PO (08:23)
[2023-05-22] MEDS: LORazepam 1 MG TABLET PO ×2 (08:24→12:38)
[2023-05-22 09:37] LABS: Legionella pneumo Ag Urine L. pneumo Negative (Negative); S pneumo Ag Urine S. pneumo Negative (Negative)
--- NOTE | 2023-05-22 10:34 | PC.NURSE ---
PATIENT HAS BEEN SEEN BY MD CELIS THIS MORNING WHO ORDERED PRN ATIVAN TO BE GIVEN HEART RATE WAS NOTED TO BE 114 THOUGH HIGH 127 DURING MD'S VISIT. B/P VALUES OF 104/62 AND 87/58 SO NOTED THIS SHIFT WITH [employer]ONING ADMINISTRATOR ENCOURAGING PO FLUIDS. LR RUNNING AT 75 ML/HR. MD WAS ALSO UPDATED THAT PATIENT HAD ONE LARGE LOOSE INCONTINENT STOOL THIS MORNING. RT HAS BEEN WORKING WITH RESIDENT AND SHE COMPLETED NEBULIZER WITH AEROBIKA DEVICE. O2 SAT 94% ON HIGH FLOW OXYGEN AT 30 L, 40% FiO2 DURING NEB TX. PATIENT ALSO HAD FEVER OF 101.3 THIS MORNING (MD UPDATED). TEMP CAME DOWN TO 96.4 AFTER PRN TYLENOL GIVEN AND WAS NOTED TO BE 97.5 WHEN ASSESSED AT 1000. PATIENT ABLE TO TRANSFER WITH ASSIST OF 1 TO BEDSIDE COMMODE. AND DAUGHTER HAVE BEEN VISITING SO FAR THIS SHIFT. NASAL SWAB COMPLETED FOR VIRAL RESPIRATORY PANEL AND SPUTUM CULTURE COMPLETED PER MD ORDERS. URINE SAMPLE HAS ALSO BEEN SENT TO LAB TO BE TESTED PER MD ORDER. AWAITING RESULTS AT THIS TIME. PATIENT ATE 100% BREAKFAST OF CHEERIOS AND CONTINUES TO EAT FRUIT CUP FOR SNACK.
[2023-05-22] MEDS: LOPERAMIDE HCL 2 MG CAPSULE PO (12:37)
--- NOTE | 2023-05-22 14:35 | P.IMPN_ITS ---
Progress Note: A&P Assessment and plan (1) Acute hypoxic respiratory failure: Problem details: This appears to be primarily pneumonia, community-acquired, and secondarily COPD causing hypoxic respiratory failure. On high-flow nasal cannulae. Not retaining CO2. Status: Acute (2) Pneumonia: Problem details: - community-acquired pneumonia treatment protocol with ceftriaxone and azithromycin started 05/20/2023. Nasal swab for MRSA is negative. Attention to atypical infectious causes due to immune suppression from CLL. Id consult by phone. Patient appears in more distress and more ill than would be expected for the relatively mild radiographic changes of bibasilar infiltrates. Broaden antibiotic spectrum to include Pseudomonas if getting worse. Respiratory viral panel, beta D glucan, sputum culture, Legionella and strep pneumonia antigen pending. Status: Acute (3) Chronic obstructive pulmonary disease (COPD) suggested by initial evaluation : Problem details: - ipratropium bromide and albuterol nebulizer therapy initiated - Aerobika device - respiratory therapy consult Not yet on systemic steroids for COPD as patient is not clinically obviously having a COPD exacerbation with marked diminished breath sounds or significant wheezing. Re-evaluate daily Status: Acute (4) Chronic lymphocytic leukemia: Problem details: Not neutropenic. Expected lymphocytosis Status: Acute (5) Tobacco dependence: Problem details: - 05/20/2023: 1/2 ppd for 40 years, actively smoking still. - nicotine patch and nicotine gum while in hospital Status: Acute (6) Thyroid function test abnormal: Problem details: Mildly suppressed TSH with normal free T4. Likely due to acute illness. Outpatient follow-up. Status: Acute (7) Abnormal EKG: Problem details: ST depression with sinus tachycardia. Normal troponin and pro-BNP. No previous electrocardiogram to compare. Echocardiogram is unremarkable. Low-dose me toprolol started and then stopped due to low blood pressure. Status: Acute Plan Patient remains quite ill appearing. Continue current therapy and evaluations pending as noted above. Anticipate improvement in the next 1-2 days. Consider switch from ceftriaxone to piperacillin tazobactam if getting worse. Time Spent With Patient Total time spent: Total time spent today is 60 minutes, 45 minutes in coordination of care and discussing with patient and other providers including infectious disease consult a plan of evaluation and management. Subjective Date Seen: 05/22/23 Interval history: 59-year-old female admitted to the hospital with severe cough and acute dyspnea. Starting last week she reportedly had a cold. Over the subsequent several days her coughing and shortness of breath got worse. She developed fever and chills. Yesterday she came to the emergency room because of this. On admission she was found to have bibasilar pneumonia on chest x-ray and chest CT. No PE. Negative testing for COVID, influenza, RSV on admission. Patient has CLL and is followed by Oncology. Her white count has been around 90,000 for a long time by her report. She is not receiving any treatment, only ongoing monitoring every 6 months. She tells me she has emphysema. It is not clear if this is a medical diagnosis. She has never been treated with inhaled bronchodilators. She does continue to smoke cigarettes. She is not aware of any history of heart disease, coronary disease, chest pain, dysrhythmia. She is unaware of any cardiac risk factors. She tells me she does not have a regular primary care provider. She has had exposure to her grandchildren, and 1 of them has been ill with a prolonged upper respiratory illness. She has been spending time in [facility] where she lives with her as well as traveling around [place] visiting her children and grandchildren. No other obvious exposures. History of episodic binge drinking of vodka is reported so patient is put on [facility] protocols. She receives 1 dose of lorazepam and does report feeling better with that and has some modest improvement in her tachycardia. Today she reports feeling better. She remains on high-flow nasal cannula with settings of 30 liters/minute and 40% FiO2. She remains tachypneic and tachycardic. Today she was able to eat some food for the 1st time. Exam Narrative: Exam Narrative: She is alert and appears in mild respiratory distress. Increased rate and work of breathing. She is oriented to her circumstances. Respirations with a few bibasilar crackles. Diminished breath sounds but no marked prolongation of expiratory phase and no marked wheezing. Cardiovascular: S1, S2, regular tachycardia. Abdomen is soft without tenderness or mass. Extremities without edema. No significant tremor. Const: Vital Signs, click to edit/add: Vital Signs - 24 hr 05/21/23 15:00 05/21/23 15:00 05/21/23 15:00 Temperature 100.0 F H Pulse Rate Pulse Rate [Pulse Oximeter] 96 96 Respiratory Rate 26 H 26 H Blood Pressure [Ri ght Radial Artery] 91/53 L Pulse Oximetry 96 Oxygen Delivery Me thod High Flow Nasal Ca nnula Oxygen Flow Rate 30 Fraction of Inspir ed Oxygen 35 35 05/21/23 15:00 05/21/23 17:00 05/21/23 18:47 Temperature 101.3 F H Pulse Rate Pulse Rate [Pulse Oximeter] 113 H Respiratory Rate 24 28 [facility] 117/89 Pulse Oximetry 90 89 Oxygen Delivery Me thod High Flow Nasal Ca nnula Room Air Oxygen Flow Rate 30 Fraction of Inspir ed Oxygen 35 40 05/21/23 19:00 05/21/23 19:00 05/21/23 21:00 Temperature 101.5 F H Pulse Rate Pulse Rate [Pulse Oximeter] 109 H Respiratory Rate 30 H Blood Pressure [[facility] Radial Artery] 96/49 L Pulse Oximetry 91 Oxygen Delivery Me thod High Flow Nasal Ca nnula Oxygen Flow Rate Fraction of Inspir ed Oxygen 40 40 05/21/23 21:16 05/21/23 23:00 05/21/23 23:00 Temperature 98.9 F 99.8 F H Pulse Rate Pulse Rate [Pulse Oximeter] 116 H Respiratory Rate 28 H Blood Pressure [[facility] Radial Artery] 100/76 Pulse Oximetry 93 Oxygen Delivery Me thod High Flow Nasal Ca nnula Oxygen Flow Rate 30 Fraction of Inspir ed Oxygen 40 40 05/21/23 23:00 05/21/23 23:00 05/21/23 23:00 Temperature Pulse Rate Pulse Rate [Pulse Oximeter] Respiratory Rate 28 H 28 H Blood Pressure [[facility] Radial Artery] Pulse Oximetry 90 90 Oxygen Delivery Me thod High Flow Nasal Ca nnula Oxygen Flow Rate 30 Fraction of Inspir ed Oxygen 40 05/22/23 01:00 05/22/23 03:00 05/22/23 04:50 Temperature 97.8 F Pulse Rate Pulse Rate [Pulse Oximeter] 98 Respiratory Rate 24 Blood [facility] 100/76 Pulse Oximetry 90 Oxygen Delivery Me thod High Flow Nasal Ca nnula Oxygen Flow Rate 30 Fraction of Inspir ed Oxygen 40 40 40 05/22/23 05:00 05/22/23 07:30 05/22/23 07:36 Temperature Pulse Rate Pulse Rate [Pulse Oximeter] Respiratory Rate Blood Pressure [[facility] Radial Artery] Pulse Oximetry Oxygen Delivery Me thod Oxygen Flow Rate Fraction of Inspir ed Oxygen 40 40 40 05/22/23 07:36 05/22/23 07:36 05/22/23 07:46 Temperature 101.3 F H Pulse Rate 124 H Pulse Rate [Pulse Oximeter] 114 H Respiratory Rate 32 H 32 H Blood Pressure [[facility] Radial Artery] 104/62 Pulse Oximetry 91 91 Oxygen Delivery Me thod High Flow Nasal Ca nnula High Flow Nasal Ca nnula Oxygen Flow Rate 30 30 Fraction of Inspir ed Oxygen 40 40 05/22/23 08:11 05/22/23 08:53 05/22/23 09:00 Temperature 101.3 F H 96.4 F L Pulse Rate Pulse Rate [Pulse Oximeter] Respiratory Rate Blood Pressure [[facility] Radial Artery] Pulse Oximetry Oxygen Delivery Me thod Oxygen Flow Rate Fraction of Inspir ed Oxygen 40 05/22/23 10:06 05/22/23 10:08 05/22/23 11:00 Temperature 97.5 F L 97.2 F L Pulse Rate Pulse Rate [Pulse Oximeter] 101 H 104 H Respiratory Rate 28 H 28 H Blood Pressure [[facility] Radial Artery] 87/58 L 94/61 Pulse Oximetry 92 92 Oxygen Delivery Me thod High Flow Nasal Ca nnula High Flow Nasal Ca nnula Oxygen Flow Rate 30 30 30 Fraction of Inspir ed Oxygen 40 40 40 05/22/23 11:25 05/22/23 11:46 05/22/23 11:52 Temperature Pulse Rate Pulse Rate [Pulse Oximeter] Respiratory Rate Blood Pressure [[facility] Radial Artery] Pulse Oximetry 93 91 Oxygen Delivery Me thod Oxygen Flow Rate Fraction of Inspir ed Oxygen 40 05/22/23 14:00 Temperature Pulse Rate Pulse Rate [Pulse Oximeter] Respiratory Rate Blood Pressure [[facility] Radial Artery] Pulse Oximetry Oxygen Delivery Me thod Oxygen Flow Rate Fraction of Inspir ed Oxygen 40 Documenting provider has reviewed patient's vital signs: yes Labs Labs: Laboratory Results - last 24 hr 05/21/23 05/21/23 05/22/23 16:17 19:20 01:10 WBC 109.40 H* RBC 3.68 L Hgb 11.8 L Hct 36.1 MCV 98 MCH 32 MCHC 33 RDW Coeff of Hien 14.0 Plt Count 93 L Neut % (Auto) 5.6 L Lymph % (Auto) 93.9 H [place] % (Auto) 0.4 Eos % (Auto) 0.0 Baso % (Auto) 0.0 Neut # (Auto) 6.10 Lymph # (Auto) 102.70 H [place] # (Auto) 0.40 Eos # (Auto) 0.00 Baso # (Auto) 0.00 Abs Immat Gran (auto) 0.10 Imm/Tot Granulo (auto) 0.1 Diff Slide Review VBG pH 7.445 H VBG pCO2 24 L VBG pO2 39.2 VBG HCO3 16 L Sodium 130 L Potassium 3.2 L Chloride 102 Carbon Dioxide 15 L Anion Gap 13 BUN 19 Creatinine 0.8 Estimated Creat Clear 54.32 Estimated GFR 80 Glucose 140 H Calcium 7.6 L Magnesium Total Bilirubin AST ALT Alkaline Phosphatase Troponin I 0.03 C-Reactive Protein Total Protein Albumin [id number] Triglycerides Cholesterol LDL Cholesterol, Calc HDL Cholesterol Urine L. pneumophilia Ag Urine Strep pneumoniae Ag Stool Occult Blood Positive A Stl C. diff Tox B Gene Negative Stl C. diff [id number] PRESUMPTIVE NEGATIVE Lab Acknowledgement Test Added 05/22/23 05/22/23 06:10 Unknown WBC 115.69 H* RBC 4.02 Hgb 12.7 Hct 40.1 MCV 100 MCH 32 MCHC 32 RDW Coeff of Hien 14.1 Plt Count 71 L Neut % (Auto) 4.1 L Lymph % (Auto) 95.4 H [place] % (Auto) 0.4 Eos % (Auto) 0.0 Baso % (Auto) 0.0 Neut # (Auto) 4.70 Lymph # (Auto) 110.40 H [place] # (Auto) 0.50 Eos # (Auto) 0.00 Baso # (Auto) 0.00 Abs Immat Gran (auto) 0.10 Imm/Tot Granulo (auto) 0.1 Diff Slide Review Acceptable Review VBG pH 7.337 VBG pCO2 36 L VBG pO2 < 20.0 L VBG HCO3 20 L Sodium 134 L Potassium 2.8 L* Chloride 104 Carbon Dioxide 19 L Anion Gap 11 BUN 17 Creatinine 0.9 Estimated Creat Clear 54.32 Estimated GFR 70 Glucose 97 Calcium 8.0 L Magnesium 2.3 Total Bilirubin 0.4 AST 139 H ALT 47 H Alkaline Phosphatase 181 H Troponin I C-Reactive Protein 22.1 H Total Protein 6.1 Albumin 3.5 [id number] Cancelled Triglycerides 237 H Cholesterol 96 LDL Cholesterol, Calc 31 HDL Cholesterol 18 L Urine L. pneumophilia Ag L. pneumo Negative Urine Strep pneumoniae Ag S. pneumo Negative Stool Occult Blood Stl C. diff Tox B Gene Stl C. diff [id number] Lab Acknowledgement
--- NOTE | 2023-05-22 14:53 | PC.NURSE ---
O2 SAT 95% ON CURRENT HIGH FLOW O2 ORDER OF 30 L, 40% FiO2. PATIENT HAS HAD TWO LARGE WATERY STOOLS THIS SHIFT WITH PRN LOPERAMIDE ADMINISTERED DURING LUNCH. BOWEL SOUNDS NOTED TO BE HYPERACTIVE X 4. COARSE CRACKLES NOTED TO LUNG BASES BILATERALLY THOUGH LUNG SOUNDS HAVE IMPROVED SINCE THIS MORNING. BED ALARM ON AT THIS TIME. PATIENT NAPPING IN BED WITH HOB ELEVATED DUE TO ONGOING RESPIRATORY ISSUES. PATIENT HAS BEEN AFEBRILE SINCE TAKING PRN TYLENOL THIS MORNING. LAST B/PS OF 113/70 AND 122/69 NOTED AT 1430 THIS AFTERNOON. CALL LIGHT WITHIN REACH. NO N/V OR CP NOTED THROUGHOUT THE SHIFT. STAFF ENCOURAGING PO INTAKE- PATIENT ATE 50% OF LUNCH THOUGH HAS NOT HAD ANY NUTRITIONAL SUPPLEMENT DESPITE STAFF PROVIDING AND ENCOURAGING PATIENT TO TAKE. CDB AND AEROBIKA ENCOURAGED AND COMPLETED THROUGHOUT THE SHIFT. PATIENT CONTINUES TO TRANSFER TO BEDSIDE COMMODE AND IS SBA.
[2023-05-22] MEDS: cefTRIAXone 2 GM in 0.9 % SODIUM CHLORIDE Mini-bag 100 ML IVPB (16:47)
[2023-05-22] MEDS: METOPROLOL TARTRATE 25 MG TABLET PO ×2 (16:52→22:00)
--- NOTE | 2023-05-22 19:01 | PC.NURSE ---
Nursing Care Hours: [id number] Pt this shift calm and cooperative, oriented x3. Fatigued in bed, falling asleep while ordering dinner, and becoming physically fatigued moving from [facility] and back. Histologist used gait belt for safety. Pt extremely diaphoretic. Histologist cleaned pt up with cool wet washcloth and new gown. Oral temp 103.3 start of shift, acetaminophen given per eMAR, temp decreased to 100.3. Metoprolol given for tachycardia, decreased from 120's to 90's. Tachypnea all shift. Decreased FIO2 from 40% to 35% to keep sats between 88-90% per RT. Ate 25% of dinner, appetite well but, pt get fatigued with eating. Pt declined Ensure. Aerobika used with nebs. Overall, pt states feeling better than yesterday.
[2023-05-22] MEDS: SODIUM CHLORIDE 0.9 % (FLUSH) 10 ML SYRINGE 5 ML IVF (20:54)
[2023-05-22] MEDS: AZITHROMYCIN 250 MG TABLET 500 MG PO (21:58)
[2023-05-22] MEDS: NICOTINE 14 mg PATCH 1 PATCH TRANSDERMA (22:01)
--- NOTE | 2023-05-22 22:32 | PC.NURSE ---
End of shift nursing note, care provided from [id number]: Pt alert and oriented, answers questions accurately but very fatigued. Initial BP 98/59 recheck 112/63, HR 90s-up to 120bpm, scheduled Metoprolol admin, temp 100.1. Pt up Ax1-2 to bedside commode, unsteady when up, states she is tired. Incontinent or bowel and bladder, brief, linen, gown, VENECIA stocking change. Additional voiding and BM on commode. Pt drinking adequate fluids. Con't on high flow NC. Pt denies pain. Bed alarm for safety promotion, call light within reach.
[2023-05-23] VITALS (35 sets, daily range): BP systolic 93–107; BP diastolic 56–64; PULSE 92–114; RESP 20–28; TEMP 37.3–39.2; O2SAT 88–94
[2023-05-23] MEDS: IPRAT-ALBUT 0.5-2.5 MG/3 ML NEB 1 NEB IH ×4 (02:31→19:54)
[2023-05-23] MEDS: ACETAMINOPHEN 325 MG TABLET 650 MG PO ×4 (05:19→23:41)
--- NOTE | 2023-05-23 06:14 | PC.NURSE ---
SHIFT NOTE : Pt is A&O, very fatigued, pt states she feels better but she does not appear better. T-max 103.3, PRN Tylenol given x2 this shift, effective. Changed linens twice overnight, both times r/t to pt being drenched in sweat after her fever broke. Pt remains on high flow O2 30L/35%FiO2, oxygen saturations 88-92%. BP 90's/50's, pt denies being lightheaded when up 1 assist to BSC. RR mid to high 20's, scheduled nebs given. Tele shows sinus tach, noticeably higher HR with fevers, improvement after Tylenol.
[2023-05-23 07:33] LABS: Hematocrit 35.2 % (33.0-51.0); Hemoglobin* 11.6 gm/dL (12.0-16.0); Immature Granulocytes Pct Auto 0.1 %; Lymphocytes Percent Auto 96.2 % (20-44); Mean Corpuscular HGB Conc 33 gm/dL (32-36); Mean Corpuscular Hemoglobin 32 pg (26-34); Mean Corpuscular Volume 96 fL (80-100); Monocytes Percent Auto 0.2 % (0.0-11.0); Neutrophils Percent Auto 3.5 % (42.0-72.0); Platelet Count* 52 K/uL (140-440); RDW Coefficient of Variation % 14.2 % (11.5-15.5); Red Blood Count 3.65 m/uL (4.00-5.20)
[2023-05-23] MEDS: OMEPRAZOLE 20 MG CAPSULE DR PO ×2 (08:01→22:05)
[2023-05-23] MEDS: THIAMINE 100 MG TABLET PO (08:01)
[2023-05-23 08:02] LABS: C Reactive Protein* 19.2 mg/dL (0.5-1.0)
[2023-05-23 08:09] LABS: Chloride* 106 mmol/L (96-114); Potassium* 3.1 mmol/L (3.6-5.1); Sodium* 131 mmol/L (135-149)
[2023-05-23 08:12] LABS: Anion Gap 9 mEq/L (7-15); Blood Urea Nitrogen* 16 mg/dL (7-30); Carbon Dioxide* 16 mmol/L (20-32); Creatinine* 0.8 mg/dL (0.5-1.5); Est. Creatinine Clearance* 54.32; Estimated Glomerular Filt Rate 80 ml/min
[2023-05-23 08:13] LABS: Calcium* 7.6 mg/dL (8.4-10.6); Glucose* 85 mg/dL (60-115); Magnesium* 2.1 mg/dL (1.5-2.6)
[2023-05-23 08:13] LABS: Lactate* 1.3 mmol/L (0.5-1.9)
--- NOTE | 2023-05-23 08:17 | PM.IMPN1 ---
Progress Note: A&P Assessment and plan (1) Pneumonia: Problem details: - community-acquired pneumonia treatment protocol with ceftriaxone and azithromycin started 05/20/2023. Nasal swab for MRSA is negative. Attention to atypical infectious causes due to immune suppression from CLL. Id consult by phone. Patient appears in more distress and more ill than would be expected for the relatively mild radiographic changes of bibasilar infiltrates. Broaden antibiotic spectrum to include Pseudomonas if getting worse. Respiratory viral panel, beta D glucan, sputum culture, Legionella and strep pneumonia antigen pending. 05/23: febrile overnight; will obtain blood cx, lactate, procal, UA, repeat CXR. MRSA screen negative. Start zosyn; dc ceftriaxone; continue azithromycin. Strep pneumo and legionella antigen negative. Will obtain Sputum cx/gram stain. Status: Acute (2) Acute hypoxic respiratory failure: Problem details: This appears to be primarily pneumonia, community-acquired, and secondarily COPD causing hypoxic respiratory failure. On high-flow nasal cannulae. Not retaining CO2. Status: Acute (3) Chronic obstructive pulmonary disease (COPD) suggested by initial evaluation: Problem details: - ipratropium bromide and albuterol nebulizer therapy initiated - Aerobika device - respiratory therapy consult Not yet on systemic steroids for COPD as patient is not clinically obviously having a COPD exacerbation with marked diminished breath sounds or significant wheezing. Re-evaluate daily Status: Acute (4) Hypokalemia: Problem details: 05/23: Potassium 3.1; will replace Status: Acute (5) Chronic lymphocytic leukemia: Problem details: Not neutropenic. Expected lymphocytosis Status: Acute (6) Abnormal EKG: Problem details: ST depression with sinus tachycardia. Normal troponin and pro-BNP. No previous electrocardiogram to compare. Echocardiogram is unremarkable. Low-dose metoprolol started and then stopped due to low blood pressure. Status: Acute (7) Thyroid function test abnormal: Problem details: Mildly suppressed TSH with normal free T4. Likely due to acute illness. Outpatient follow-up. Status: Acute (8) ETOH abuse: Problem details: episodic binge drinking history Status: Acute (9) Tobacco dependence: Problem details: - 05/20/2023: 1/2 ppd for 40 years, actively smoking still. - nicotine patch and nicotine gum while in hospital Status: Acute Subjective Date Seen: 05/23/23 Interval history: patient with fever overnight; unfortunatley cross cover not notified continues to be tachycardic endorses SOB and cough denies chest pain Exam Narrative: Exam Narrative: Gen: no acute distress HEENT: NCAT EOMI mmm Neck: Supple CV: tachycardic normal s1 s2 Lungs: coarse breath sounds Abd: Soft,nt, nd Neuro: Alert, oriented, CN grossly intact; nonfocal screening?exam Psych: appropriate affect MSK: age appropriate muscle mass Skin; Warm, dry no rash on face Const: Vital Signs, click to edit/add: Vital Signs - 24 hr 05/22/23 08:53 05/22/23 09:00 05/22/23 09:00 Temperature 96.4 F L Pulse Rate 116 H Pulse Rate [Pulse Oximeter] Respiratory Rate Blood Pressure Blood Pressure [Le ft Arm] Blood Pressure [Ri ght Radial Artery] Pulse Oximetry 91 Oxygen Delivery Me thod Oxygen Flow Rate Fraction of Inspir ed Oxygen 40 05/22/23 10:00 05/22/23 10:06 05/22/23 10:07 Temperature Pulse Rate 108 H 101 H Pulse Rate [Pulse Oximeter] Respiratory Rate Blood Pressure 80/56 L Blood Pressure [Le ft Arm] Blood Pressure [Ri ght Radial Artery] Pulse Oximetry 93 92 Oxygen Delivery Me thod Oxygen Flow Rate 30 Fraction of Inspir ed Oxygen 40 05/22/23 10:08 05/22/23 10:08 05/22/23 10:10 Temperature 97.5 F L Pulse Rate 102 H 100 Pulse Rate [Pulse Oximeter] 101 H Respiratory Rate 28 H Blood Pressure 89/53 L 87/58 L Blood Pressure [Le ft Arm] Blood Pressure [Ri ght Radial Artery] 87/58 L Pulse Oximetry 92 91 92 Oxygen Delivery Me thod High Flow Nasal Ca nnula Oxygen Flow Rate 30 Fraction of Inspir ed Oxygen 40 05/22/23 11:00 05/22/23 11:00 05/22/23 11:21 Temperature 97.2 F L Pulse Rate 96 102 H Pulse Rate [Pulse Oximeter] 104 H Respiratory Rate 28 H Blood Pressure 112/96 H Blood Pressure [Le ft Arm] Blood Pressure [Ri ght Radial Artery] 94/61 Pulse Oximetry 92 88 91 Oxygen Delivery Me thod High Flow Nasal Ca nnula Oxygen Flow Rate 30 Fraction of Inspir ed Oxygen 40 05/22/23 11:25 05/22/23 11:42 05/22/23 11:44 Temperature Pulse Rate 96 98 Pulse Rate [Pulse Oximeter] Respiratory Rate Blood Pressure 83/53 L 94/61 Blood Pressure [Le ft Arm] Blood Pressure [Ri ght Radial Artery] Pulse Oximetry 92 91 Oxygen Delivery Me thod Oxygen Flow Rate Fraction of Inspir ed Oxygen 40 05/22/23 11:46 05/22/23 11:52 05/22/23 12:00 Temperature Pulse Rate 99 Pulse Rate [Pulse Oximeter] Respiratory Rate Blood Pressure Blood Pressure [Le ft Arm] Blood Pressure [Ri ght Radial Artery] Pulse Oximetry 93 91 94 Oxygen Delivery Me thod Oxygen Flow Rate Fraction of Inspir ed Oxygen 05/22/23 13:00 05/22/23 14:00 05/22/23 14:00 Temperature Pulse Rate 106 H 115 H Pulse Rate [Pulse Oximeter] Respiratory Rate Blood Pressure Blood Pressure [Le ft Arm] Blood Pressure [Ri ght Radial Artery] Pulse Oximetry 97 96 Oxygen Delivery Me thod Oxygen Flow Rate Fraction of Inspir ed Oxygen 40 05/22/23 14:31 05/22/23 14:32 05/22/23 15:00 Temperature 103.3 F H Pulse Rate 125 H 122 H Pulse Rate [Pulse Oximeter] 120 H Respiratory Rate 30 H Blood Pressure 113/70 122/69 Blood Pressure [Le ft Arm] Blood Pressure [Ri ght Radial Artery] 125/67 Pulse Oximetry 91 93 93 Oxygen Delivery Me thod High Flow Nasal Ca nnula Oxygen Flow Rate Fraction of Inspir ed Oxygen 05/22/23 15:00 05/22/23 15:00 05/22/23 15:00 Temperature Pulse Rate 90 Pulse Rate [Pulse Oximeter] 120 H Respiratory Rate 30 H 30 H Blood Pressure Blood Pressure [Le ft Arm] Blood Pressure [Ri ght Radial Artery] Pulse Oximetry 94 Oxygen Delivery Me thod High Flow Nasal Ca nnula Oxygen Flow Rate 30 Fraction of Inspir ed Oxygen 40 05/22/23 15:00 05/22/23 15:00 05/22/23 16:00 Temperature Pulse Rate 118 H 122 H Pulse Rate [Pulse Oximeter] Respiratory Rate Blood Pressure Blood Pressure [Le ft Arm] Blood Pressure [Ri ght Radial Artery] Pulse Oximetry 91 Oxygen Delivery Me thod Oxygen Flow Rate Fraction of Inspir ed Oxygen 40 05/22/23 16:00 05/22/23 16:28 05/22/23 16:51 Temperature 103.3 F H Pulse Rate 119 H 122 H Pulse Rate [Pulse Oximeter] Respiratory Rate Blood Pressure 125/67 Blood Pressure [Le ft Arm] Blood Pressure [Ri ght Radial Artery] Pulse Oximetry 92 93 Oxygen Delivery Me thod Oxygen Flow Rate Fraction of Inspir ed Oxygen 05/22/23 17:00 05/22/23 18:00 05/22/23 18:00 Temperature Pulse Rate 119 H 104 H Pulse Rate [Pulse Oximeter] Respiratory Rate Blood Pressure Blood Pressure [Le ft Arm] Blood Pressure [Ri ght Radial Artery] Pulse Oximetry 94 94 Oxygen Delivery Me thod Oxygen Flow Rate Fraction of Inspir ed Oxygen 40 05/22/23 18:06 05/22/23 18:25 05/22/23 19:00 Temperature 100.3 F H Pulse Rate 98 Pulse Rate [Pulse Oximeter] Respiratory Rate Blood Pressure Blood Pressure [Le ft Arm] Blood Pressure [Ri ght Radial Artery] Pulse Oximetry 89 Oxygen Delivery Me thod Oxygen Flow Rate Fraction of Inspir ed Oxygen 35 05/22/23 19:40 05/22/23 19:44 05/22/23 20:00 Temperature 100.1 F H Pulse Rate 102 H Pulse Rate [Pulse Oximeter] 103 H Respiratory Rate 26 H Blood Pressure 98/59 L Blood Pressure [Le ft Arm] 98/59 L Blood Pressure [Ri ght Radial Artery] Pulse Oximetry 90 90 Oxygen Delivery Me thod High Flow Nasal Ca nnula Oxygen Flow Rate 30 Fraction of Inspir ed Oxygen 35 35 05/22/23 20:07 05/22/23 21:00 05/22/23 22:00 Temperature Pulse Rate 101 H 107 H Pulse Rate [Pulse Oximeter] Respiratory Rate Blood Pressure Blood Pressure [Le ft Arm] Blood Pressure [Ri ght Radial Artery] Pulse Oximetry 86 L 85 L Oxygen Delivery Me thod Oxygen Flow Rate Fraction of Inspir ed Oxygen 35 05/22/23 22:00 05/22/23 22:00 05/22/23 22:01 Temperature Pulse Rate 122 H 119 H Pulse Rate [Pulse Oximeter] Respiratory Rate Blood Pressure 112/63 Blood Pressure [Le ft Arm] 112/63 Blood Pressure [Ri ght Radial Artery] Pulse Oximetry 87 L 89 Oxygen Delivery Me thod Oxygen Flow Rate Fraction of Inspir ed Oxygen 05/22/23 23:00 05/22/23 23:42 05/22/23 23:44 Temperature 103.3 F H Pulse Rate 108 H 108 H Pulse Rate [Pulse Oximeter] Respiratory Rate Blood Pressure 104/66 Blood Pressure [Le ft Arm] Blood Pressure [Ri ght Radial Artery] Pulse Oximetry 90 91 Oxygen Delivery Me thod Oxygen Flow Rate Fraction of Inspir ed Oxygen 05/22/23 23:50 05/22/23 23:50 05/22/23 23:50 Temperature 103.3 F H Pulse Rate 101 H Pulse Rate [Pulse Oximeter] 101 H 101 H Respiratory Rate 26 H 26 H Blood Pressure Blood Pressure [Le ft Arm] 104/66 Blood Pressure [Ri ght Radial Artery] Pulse Oximetry 90 Oxygen Delivery Me thod High Flow Nasal Ca nnula Oxygen Flow Rate 30 Fraction of Inspir ed Oxygen 35 05/22/23 23:50 05/23/23 00:00 05/23/23 00:00 Temperature Pulse Rate 102 H Pulse Rate [Pulse Oximeter] Respiratory Rate 26 H Blood Pressure Blood Pressure [Le ft Arm] Blood Pressure [Ri ght Radial Artery] Pulse Oximetry 90 90 Oxygen Delivery Me thod High Flow Nasal Ca nnula Oxygen Flow Rate 30 Fraction of Inspir ed Oxygen 35 35 05/23/23 01:00 05/23/23 02:00 05/23/23 02:00 Temperature Pulse Rate 100 92 Pulse Rate [Pulse Oximeter] Respiratory Rate Blood Pressure Blood Pressure [Le ft Arm] Blood Pressure [Ri ght Radial Artery] Pulse Oximetry 90 89 Oxygen Delivery Me thod Oxygen Flow Rate Fraction of Inspir ed Oxygen 35 05/23/23 02:25 05/23/23 02:31 05/23/23 03:00 Temperature 99.1 F 99.1 F Pulse Rate 101 H Pulse Rate [Pulse Oximeter] 96 Respiratory Rate 28 H Blood Pressure 93/56 L Blood Pressure [Le ft Arm] 93/56 L Blood Pressure [Ri ght Radial Artery] Pulse Oximetry 90 91 Oxygen Delivery Me thod High Flow Nasal Ca nnula Oxygen Flow Rate 30 Fraction of Inspir ed Oxygen 35 05/23/23 03:00 05/23/23 04:00 05/23/23 04:00 Temperature Pulse Rate 98 97 Pulse Rate [Pulse Oximeter] Respiratory Rate Blood Pressure Blood Pressure [Le ft Arm] Blood Pressure [Ri ght Radial Artery] Pulse Oximetry 89 93 Oxygen Delivery Me thod Oxygen Flow Rate Fraction of Inspir ed Oxygen 35 05/23/23 05:00 05/23/23 05:19 05/23/23 06:00 Temperature 102.6 F H Pulse Rate 107 H Pulse Rate [Pulse Oximeter] Respiratory Rate Blood Pressure Blood Pressure [Le ft Arm] Blood Pressure [Ri ght Radial Artery] Pulse Oximetry 92 Oxygen Delivery Me thod Oxygen Flow Rate Fraction of Inspir ed Oxygen 35 05/23/23 06:00 05/23/23 07:00 05/23/23 07:00 Temperature 99.6 F Pulse Rate 105 H 113 H Pulse Rate [Pulse Oximeter] 106 H Respiratory Rate 26 H Blood Pressure Blood Pressure [Le ft Arm] 98/58 L Blood Pressure [Ri ght Radial Artery] Pulse Oximetry 88 90 93 Oxygen Delivery Me thod High Flow Nasal Ca nnula Oxygen Flow Rate Fraction of Inspir ed Oxygen 05/23/23 07:07 05/23/23 08:04 Temperature 99.6 F Pulse Rate 114 H Pulse Rate [Pulse Oximeter] Respiratory Rate Blood Pressure 98/58 L Blood Pressure [Le ft Arm] Blood Pressure [Ri ght Radial Artery] Pulse Oximetry 92 Oxygen Delivery Me thod Oxygen Flow Rate Fraction of Inspir ed Oxygen Labs Labs: Laboratory Results - last 24 hr 05/22/23 05/23/23 05/23/23 Unknown 07:10 08:00 Sodium 131 L Potassium 3.1 L Chloride 106 Carbon Dioxide 16 L Anion Gap 9 BUN 16 Creatinine 0.8 Estimated Creat Clear 54.32 Estimated GFR 80 Glucose 85 Lactate 1.3 Calcium 7.6 L Magnesium 2.1 C-Reactive Protein 19.2 H Urine L. pneumophilia Ag L. pneumo Negative Urine Strep pneumoniae Ag S. pneumo Negative
[2023-05-23 08:23] LABS: White Blood Count* 84.44 K/uL (4.50-11.00)
[2023-05-23 08:24] LABS: Slide Review Reflex Yes
--- NOTE | 2023-05-23 08:53 | CRLHL7_ITS ---
For Patients: As a result of the Century Cures Act, medical imaging exams and procedure reports are released immediately into your electronic medical record. You may view this report before your referring provider. If you have questions, please contact your health care provider. INDICATION: FEVER/PNEUMONIA TECHNIQUE: Chest 1 views. COMPARISON: May 22, 2023 FINDINGS: Cardiovascular and mediastinum: Heart size and vasculature are normal in caliber and appearance. Lungs and pleural spaces: Worsening of the previously described left greater than right basilar opacities, concerning for pneumonia. No sign of pleural effusion. No pneumothorax. Bones and soft tissues: No significant findings. IMPRESSION: Worsening of the previously described left greater than right basilar opacities, concerning for pneumonia. Dictated by Amor Villalobos MD @ 05/23/2023 9:24:55 AM (Electronically Signed)
[2023-05-23] MEDS: MULTIVITAMIN/MINERALS 1 TABLET 1 TAB PO (09:18)
[2023-05-23] MEDS: METOPROLOL TARTRATE 25 MG TABLET PO ×2 (09:20→22:05)
[2023-05-23] MEDS: SODIUM CHLORIDE 0.9 % (FLUSH) 10 ML SYRINGE 5 ML IVF ×2 (09:23→22:04)
[2023-05-23] MEDS: LACTATED RINGERS 1000 ML 1,000 ML 75 ML IV (09:32)
[2023-05-23] MEDS: PIPERACILLIN/TAZOBACTAM 4.5 GM in 0.9 % SODIUM CHLORIDE Mini-bag 100 ML IVPB ×3 (09:38→22:05)
[2023-05-23] MEDS: POTASSIUM CHLORIDE 10 MEQ CAPSULE ER 40 MEQ PO ×2 (09:39→17:48)
[2023-05-23 11:29] LABS: Slide Review Acceptable Review (Acceptable)
[2023-05-23] MEDS: 0.9 % SODIUM CHLORIDE 500 ML 500 ML IV (13:11)
[2023-05-23] MEDS: ALBUMIN HUMAN 25% 25 GM/100 ML VIAL IVPB ×2 (14:11→15:21)
[2023-05-23] MEDS: 0.9 % SODIUM CHLORIDE 250 ml IV (16:34)
[2023-05-23 17:59] LABS: Appearance Urine Clear (Clear); Bilirubin Urine Negative (Negative); Blood Urine 1+ (Negative); Color Urine Yellow (Yellow); Glucose Urine Negative (Negative); Ketones Urine Negative (Negative); Leukocyte Esterase Urine Negative (Negative); Nitrite Urine Negative (Negative); Protein Urine 2+ (Negative); Urobilinogen Urine 0.2 (0.2-1.0)
[2023-05-23 18:37] LABS: Amorphous Sediment Urine Moderate; Bacteria Urine Moderate; RBC Urine 0-2 (0-2); Squamous Epithelial Cell Urine Few (None-Few); WBC Urine 0-2 (0-5)
[2023-05-23 18:38] LABS: Coarse Granular Casts Urine Few
--- NOTE | 2023-05-23 19:13 | PC.NURSE ---
Pt fatigued, cooperative, rousable to name. Resting in bed most of day. Pt reports weakness, 2 assist to ambulate, pt up to bedside commode to void. Occasionally incontinent of bowel and bladder related to coughing episodes. Using Aerobika with staff encouragement. Pt febrile during shift, antipyretic medication given per OCT. Dr. Pichardo notified, new labs and medication orders recieved. Pt has been tachycardic at 90-100 bpm during shift. Poor appetite, denies nausea. Patient resting at end of shift.
--- NOTE | 2023-05-23 20:26 | RESP.RT ---
Patient is a current smoker with COPD. She has been on HFNC over the past few days and is able to clear mucus with humidity and use of Aerobika and Nebs. She will most likely need a home O2 assessment once she is ready for discharge. At this point I would recommend her staying on the HFNC for the humidity in assisting with mucus clearance. When she is up walking she can transition to a regular nasal cannula for walks, but should remain on HFNC when at rest.
[2023-05-23] MEDS: NICOTINE 14 mg PATCH 1 PATCH TRANSDERMA (22:04)
[2023-05-23] MEDS: AZITHROMYCIN 250 MG TABLET 500 MG PO (22:06)
[2023-05-24] VITALS (18 sets, daily range): BP systolic 98–117; BP diastolic 59–74; PULSE 91–106; RESP 20–30; TEMP 36.9–37.8; O2SAT 90–94
[2023-05-24] MEDS: LACTATED RINGERS 1000 ML 1,000 ML 75 ML IV ×2 (00:52→11:57)
[2023-05-24] MEDS: IPRAT-ALBUT 0.5-2.5 MG/3 ML NEB 1 NEB IH ×4 (03:09→21:25)
[2023-05-24] MEDS: PIPERACILLIN/TAZOBACTAM 4.5 GM in 0.9 % SODIUM CHLORIDE Mini-bag 100 ML IVPB ×4 (03:09→21:26)
--- NOTE | 2023-05-24 06:39 | PC.NURSE ---
[id number]: Patient pleasant. Weak and fatigued. A1 to BSC. Encouraged PO intake, offering sips of water and apple juice, took in 420mL overnight. HFCN 30L 25% to maintain O2>88%. SOB at rest. Encouraged Aerobika. Fever of 101.6 at 2341 otherwise afebrile during shift. Trialing patient w/o Tylenol and will recheck temp at 0700. Denies CP/N/V/dizziness. HR in low 100's.
[2023-05-24 07:53] LABS: Hematocrit 31.6 % (33.0-51.0); Hemoglobin* 10.3 gm/dL (12.0-16.0); Immature Granulocytes Pct Auto 0.2 %; Lymphocytes Percent Auto 86.3 % (20-44); Mean Corpuscular HGB Conc 33 gm/dL (32-36); Mean Corpuscular Hemoglobin 32 pg (26-34); Mean Corpuscular Volume 98 fL (80-100); Monocytes Percent Auto 6.6 % (0.0-11.0); Neutrophils Percent Auto 6.9 % (42.0-72.0); Platelet Count* 61 K/uL (140-440); Red Blood Count 3.23 m/uL (4.00-5.20)
[2023-05-24 07:56] LABS: Slide Review Reflex Yes; White Blood Count* 58.18 K/uL (4.50-11.00)
[2023-05-24 07:57] LABS: Slide Review Acceptable Review (Acceptable)
[2023-05-24] MEDS: METOPROLOL TARTRATE 25 MG TABLET PO ×2 (08:49→21:26)
[2023-05-24] MEDS: THIAMINE 100 MG TABLET PO (08:49)
[2023-05-24] MEDS: OMEPRAZOLE 20 MG CAPSULE DR PO ×2 (08:50→21:26)
[2023-05-24] MEDS: SODIUM CHLORIDE 0.9 % (FLUSH) 10 ML SYRINGE 5 ML IVF ×2 (08:50→21:26)
[2023-05-24] MEDS: MULTIVITAMIN/MINERALS 1 TABLET 1 TAB PO (08:50)
[2023-05-24 09:01] LABS: C Reactive Protein* 15.5 mg/dL (0.5-1.0)
[2023-05-24] MEDS: 0.9 % SODIUM CHLORIDE 250 ml IV (09:18)
[2023-05-24] MEDS: ACETAMINOPHEN 325 MG TABLET 650 MG PO (11:21)
--- NOTE | 2023-05-24 13:05 | RESP.RT ---
Patient continues on Heated High Flow nasal cannula 30L @25% oxygen. She has been using the Aerobika and IS. Coughing up blood and brown tinged secretions. She has fever and experiencing fatigued today. Up in the chair for short period of time per RN. Will continue on current setting and re-evaluate.
[2023-05-24 13:16] LABS: Chloride* 109 mmol/L (96-114); Potassium* 4.1 mmol/L (3.6-5.1); Sodium* 133 mmol/L (135-149)
[2023-05-24 13:19] LABS: Anion Gap 7 mEq/L (7-15); Blood Urea Nitrogen* 14 mg/dL (7-30); Calcium* 7.5 mg/dL (8.4-10.6); Carbon Dioxide* 17 mmol/L (20-32); Creatinine* 0.8 mg/dL (0.5-1.5); Est. Creatinine Clearance* 54.32; Estimated Glomerular Filt Rate 80 ml/min; Glucose* 80 mg/dL (60-115)
--- NOTE | 2023-05-24 16:38 | P.IMPN_ITS ---
Progress Note: A&P Assessment and plan (1) Pneumonia: Problem details: - community-acquired pneumonia treatment protocol with ceftriaxone and azithromycin started 05/20/2023. Nasal swab for MRSA is negative. Attention to atypical infectious causes due to immune suppression from CLL. Id consult by phone. Patient appears in more distress and more ill than would be expected for the relatively mild radiographic changes of bibasilar infiltrates. Broaden antibiotic spectrum to include Pseudomonas if getting worse. Respiratory viral panel, beta D glucan, sputum culture, Legionella and strep pneumonia antigen pending. - 05/23: febrile overnight; will obtain blood cx, lactate, procal, UA, repeat CXR. MRSA screen negative. Start zosyn; dc ceftriaxone; continue azithromycin. Strep pneumo and legionella antigen negative. Will obtain Sputum cx/gram stain. - 05/24 febrile overnight again. sputum cx from 05/22 showed only yeast. Repeat sputum cx from yesterday pending. BC neg. WBC improving (but has CLL, so correlation to infection is unclear), prolactin improving. Continue zosyn and az ithromycin. Status: Acute (2) Acute hypoxic respiratory failure: Problem details: This appears to be primarily pneumonia, community-acquired, and secondarily COPD causing hypoxic respiratory failure. On high-flow nasal cannulae. Not retaining CO2. Status: Acute (3) Chronic obstructive pulmonary disease (COPD) suggested by initial evaluation: Problem details: - ipratropium bromide and albuterol nebulizer therapy initiated - Aerobika device - respiratory therapy consult - 05/23 Not yet on systemic steroids for COPD as patient is not clinically obviously having a COPD exacerbation with marked diminished breath sounds or significant wheezing. - 05/24 significant wheezing today. Start oral steroids. Monitor WBC Status: Acute (4) Hypokalemia: Problem details: 05/23: Potassium 3.1; will replace - 05/24 K is 4.1 Status: Resolved (5) Chronic lymphocytic leukemia: Problem details: Not neutropenic. Expected lymphocytosis Status: Acute (6) Abnormal EKG: Problem details: ST depression with sinus tachycardia. Normal troponin and pro-BNP. No previous electrocardiogram to compare. Echocardiogram is unremarkable. Low-dose metoprolol started and then stopped due to low blood pressure. Status: Acute (7) Thyroid function test abnormal: Problem details: Mildly suppressed TSH with normal free T4. Likely due to acute illness. Outpatient follow-up. Status: Acute (8) ETOH abuse: Problem details: episodic binge drinking history Status: Acute (9) Tobacco dependence: Problem details: - 05/20/2023: 1/2 ppd for 40 years, actively smoking still. - nicotine patch and nicotine gum while in hospital Status: Acute Subjective Time Seen by Provider: 12:45 Date Seen: 05/24/23 Interval history: Muriel is feeling a bit better today. She has no concerns or complaints. Exam Narrative: Exam Narrative: General: No acute distress. Awake, alert, oriented x3. No pallor. No jaundice. Oropharynx: Clear. Mucous membranes moist. Cardiovascular: Regular rate and rhythm. No murmurs, gallops, or rubs. Respiratory: Tachypneic. Expiratory wheezes throughout. Coarse, no crackles. Abdomen: Bowel sounds present. Soft, nondistended, nontender. Extremities: No pedal edema. Const: Vital Signs, click to edit/add: Vital Signs - 24 hr 05/23/23 17:00 05/23/23 17:47 05/23/23 18:00 Temperature 101.2 F H Pulse Rate 101 H Pulse Rate [Pulse Oximeter] Respiratory Rate Blood Pressure [[facility] Radial Artery] Pulse Oximetry Oxygen Delivery Me thod Oxygen Flow Rate Fraction of Inspir ed Oxygen 25 05/23/23 19:00 05/23/23 19:12 05/23/23 19:45 Temperature 100.4 F H 99.2 F Pulse Rate Pulse Rate [Pulse Oximeter] 100 Respiratory Rate 20 Blood Pressure [[facility] Radial Artery] 107/64 Pulse Oximetry 92 Oxygen Delivery Me thod High Flow Nasal Ca nnula Oxygen Flow Rate 30 Fraction of Inspir ed Oxygen 25 25 05/23/23 21:00 05/23/23 22:17 05/23/23 22:23 Temperature 99.5 F 99.5 F Pulse Rate Pulse Rate [Pulse Oximeter] 105 H 105 H Respiratory Rate 28 H 28 H Blood Pressure [[facility] Radial Artery] 99/59 L 99/59 L Pulse Oximetry 92 Oxygen Delivery Me thod High Flow Nasal Ca nnula High Flow Nasal Ca nnula Oxygen Flow Rate 30 30 Fraction of Inspir ed Oxygen 25 25 25 05/23/23 22:33 05/23/23 22:35 05/23/23 22:39 Temperature Pulse Rate Pulse Rate [Pulse Oximeter] 105 H Respiratory Rate 28 H Blood Pressure [[facility] Radial Artery] Pulse Oximetry 92 Oxygen Delivery Me thod High Flow Nasal Ca nnula Oxygen Flow Rate 30 Fraction of Inspir ed Oxygen 25 25 05/23/23 23:41 05/23/23 23:41 05/24/23 00:54 Temperature 101.6 F H 101.6 F H 100.0 F H Pulse Rate Pulse Rate [Pulse Oximeter] Respiratory Rate Blood Pressure [[facility] Radial Artery] Pulse Oximetry Oxygen Delivery Me thod Oxygen Flow Rate Fraction of Inspir ed Oxygen 05/24/23 01:00 05/24/23 01:39 05/24/23 03:13 Temperature 98.7 F Pulse Rate 95 Pulse Rate [Pulse Oximeter] 99 Respiratory Rate 24 Blood Pressure [[facility] Radial Artery] 117/66 Pulse Oximetry 92 Oxygen Delivery Me thod High Flow Nasal Ca nnula Oxygen Flow Rate 30 Fraction of Inspir ed Oxygen 25 25 05/24/23 03:18 05/24/23 03:18 05/24/23 05:00 Temperature 98.7 F Pulse Rate Pulse Rate [Pulse Oximeter] 99 Respiratory Rate 24 Blood Pressure [[facility] Radial Artery] 117/66 Pulse Oximetry 92 Oxygen Delivery Me thod High Flow Nasal Ca nnula Oxygen Flow Rate 30 Fraction of Inspir ed Oxygen 25 25 25 05/24/23 05:45 05/24/23 06:55 05/24/23 07:00 Temperature 98.4 F 99.8 F H Pulse Rate Pulse Rate [Pulse Oximeter] Respiratory Rate 22 Blood Pressure [[facility] Radial Artery] Pulse Oximetry 92 Oxygen Delivery Me thod High Flow Nasal Ca nnula Oxygen Flow Rate 30 Fraction of Inspir ed Oxygen 25 05/24/23 07:00 05/24/23 07:00 05/24/23 07:00 Temperature 99.3 F 99.3 F Pulse Rate Pulse Rate [Pulse Oximeter] 104 H 104 H Respiratory Rate 30 H 30 H Blood Pressure [[facility] Radial Artery] 109/68 109/68 Pulse Oximetry 91 91 Oxygen Delivery Me thod High Flow Nasal Ca nnula High Flow Nasal Ca nnula Oxygen Flow Rate 30 30 Fraction of Inspir ed Oxygen 25 25 25 05/24/23 07:00 05/24/23 09:00 05/24/23 10:00 Temperature Pulse Rate 106 H Pulse Rate [Pulse Oximeter] 104 H Respiratory Rate 30 H Blood Pressure [Ri t Radial Artery] Pulse Oximetry Oxygen Delivery Me thod Oxygen Flow Rate Fraction of Inspir ed Oxygen 25 05/24/23 11:00 05/24/23 11:00 05/24/23 11:00 Temperature 99.1 F Pulse Rate Pulse Rate [Pulse Oximeter] 96 Respiratory Rate 30 H Blood Pressure [Ri ght Radial Artery] 112/63 Pulse Oximetry 92 92 Oxygen Delivery Me thod High Flow Nasal Ca nnula Oxygen Flow Rate 30 Fraction of Inspir ed Oxygen 25 25 05/24/23 13:00 Temperature Pulse Rate Pulse Rate [Pulse Oximeter] Respiratory Rate Blood Pressure [Ri t Radial Artery] Pulse Oximetry Oxygen Delivery Me thod Oxygen Flow Rate Fraction of Inspir ed Oxygen 25 Labs Labs: Laboratory Results - last 24 hr 05/23/23 05/24/23 05/24/23 15:47 07:23 12:55 WBC 58.18 H* RBC 3.23 L Hgb 10.3 L Hct 31.6 L MCV 98 MCH 32 MCHC 33 RDW Coeff of Hien 15.0 Plt Count 61 L Neut % (Auto) 6.9 L Lymph % (Auto) 86.3 H Mcnairy % (Auto) 6.6 Eos % (Auto) 0.0 Baso % (Auto) 0.0 Neut # (Auto) 4.00 Lymph # (Auto) 50.20 H Mcnairy # (Auto) 3.80 H Eos # (Auto) 0.00 Baso # (Auto) 0.00 Abs Immat Gran (auto) 0.10 Imm/Tot Granulo (auto) 0.2 Diff Slide Review Acceptable Review Sodium 133 L Potassium 4.1 Chloride 109 Carbon Dioxide 17 L Anion Gap 7 BUN 14 Creatinine 0.8 Estimated Creat Clear 54.32 Estimated GFR 80 Glucose 80 Calcium 7.5 L C-Reactive Protein 15.5 H Procalcitonin 10.40 H Urine Color Yellow Urine Appearance Clear Urine pH 6.0 Ur Specific [place] 1.020 Urine Protein 2+ A Urine Glucose (UA) Negative Urine Ketones Negative Urine Blood 1+ A Urine Nitrite Negative Urine Bilirubin Negative Urine Urobilinogen 0.2 Ur Leukocyte Esterase Negative Urine RBC 0-2 Urine WBC 0-2 Urine WBC Clumps None Ur Squamous Epith Cells Few Amorphous Sediment Moderate A Urine Bacteria Moderate A Coarse Granular Casts Few A Lab Acknowledgement Test Added
[2023-05-24] MEDS: predniSONE 20 MG TABLET 40 MG PO (18:31)
--- NOTE | 2023-05-24 18:58 | PC.NURSE ---
Pt very somnolent and fatigued most of the morning and afternoon. She did wake for cares and moved to the chair for an hour. Incontinent loose stool this morning as well, thought it was flatus but has had intermittent diarrhea. Temps up to 99.3 today, PRN Tylenol was given d/t pt experiencing chills and rigors. Tele= NSR, rare episodes of sinus tach up to 110 BPM. Denies pain. Poor PO intake, encouraging cough and deep breathing/aerobika. More wakeful this afternoon, up to chair visiting with daughter but appetite continues to be poor. HFNC 30LPM/25% FiO2 with SpO2 90-92%.
[2023-05-24] MEDS: AZITHROMYCIN 250 MG TABLET 500 MG PO (21:27)
[2023-05-24] MEDS: NICOTINE 14 mg PATCH 1 PATCH TRANSDERMA (21:27)
[2023-05-25] VITALS (13 sets, daily range): BP systolic 110–119; BP diastolic 71–80; PULSE 79–877; RESP 20–24; TEMP 36.4–37.2; O2SAT 89–95
[2023-05-25] MEDS: LACTATED RINGERS 1000 ML 1,000 ML 75 ML IV ×2 (00:41→14:13)
[2023-05-25] MEDS: IPRAT-ALBUT 0.5-2.5 MG/3 ML NEB 1 NEB IH ×2 (03:31→18:45)
[2023-05-25] MEDS: PIPERACILLIN/TAZOBACTAM 4.5 GM in 0.9 % SODIUM CHLORIDE Mini-bag 100 ML IVPB ×2 (03:31→09:34)
--- NOTE | 2023-05-25 06:58 | PC.NURSE ---
Patient slept well. Afebrile. Ambulated to bathroom this morning without any difficulty. Denied pain.
[2023-05-25 07:19] LABS: Hemoglobin* 10.3 gm/dL (12.0-16.0); Immature Granulocytes Pct Auto 0.2 %; Lymphocytes Percent Auto 90.3 % (20-44); Mean Corpuscular HGB Conc 32 gm/dL (32-36); Mean Corpuscular Hemoglobin 32 pg (26-34); Mean Corpuscular Volume 98 fL (80-100); Monocytes Percent Auto 4.7 % (0.0-11.0); Neutrophils Percent Auto 4.8 % (42.0-72.0); Platelet Count* 85 K/uL (140-440); RDW Coefficient of Variation % 15.1 % (11.5-15.5); Red Blood Count 3.26 m/uL (4.00-5.20)
[2023-05-25 07:29] LABS: Chloride* 108 mmol/L (96-114); Potassium* 4.1 mmol/L (3.6-5.1); Sodium* 134 mmol/L (135-149)
[2023-05-25 07:32] LABS: Anion Gap 8 mEq/L (7-15); Blood Urea Nitrogen* 12 mg/dL (7-30); Carbon Dioxide* 18 mmol/L (20-32); Creatinine* 0.6 mg/dL (0.5-1.5); Est. Creatinine Clearance* 54.32; Estimated Glomerular Filt Rate 98 ml/min
[2023-05-25 07:33] LABS: Calcium* 7.5 mg/dL (8.4-10.6); Glucose* 111 mg/dL (60-115)
[2023-05-25 07:35] LABS: C Reactive Protein* 7.2 mg/dL (0.5-1.0)
[2023-05-25 07:36] LABS: Slide Review Reflex Yes; White Blood Count* 102.62 K/uL (4.50-11.00)
[2023-05-25 07:38] LABS: Slide Review Acceptable Review (Acceptable)
[2023-05-25 07:49] LABS: Procalcitonin* 5.21 ng/mL (<0.50)
[2023-05-25] MEDS: predniSONE 20 MG TABLET 40 MG PO (08:12)
[2023-05-25] MEDS: METOPROLOL TARTRATE 25 MG TABLET PO ×2 (08:13→20:59)
[2023-05-25] MEDS: OMEPRAZOLE 20 MG CAPSULE DR PO ×2 (08:13→20:59)
[2023-05-25] MEDS: MULTIVITAMIN/MINERALS 1 TABLET 1 TAB PO (08:13)
[2023-05-25] MEDS: SODIUM CHLORIDE 0.9 % (FLUSH) 10 ML SYRINGE 5 ML IVF ×2 (08:14→21:09)
--- NOTE | 2023-05-25 11:54 | P.IMPN_ITS ---
Progress Note: A&P Assessment and plan (1) Pneumonia: Problem details: - community-acquired pneumonia treatment protocol with ceftriaxone and azithromycin started 05/20/2023. Nasal swab for MRSA is negative. Attention to atypical infectious causes due to immune suppression from CLL. Id consult by phone. Patient appears in more distress and more ill than would be expected for the relatively mild radiographic changes of bibasilar infiltrates. Broaden antibiotic spectrum to include Pseudomonas if getting worse. Respiratory viral panel, beta D glucan, sputum culture, Legionella and strep pneumonia antigen pending. - 05/23: febrile overnight; will obtain blood cx, lactate, procal, UA, repeat CXR. MRSA screen negative. Start zosyn; dc ceftriaxone; continue azithromycin. Strep pneumo and legionella antigen negative. Will obtain Sputum cx/gram stain. - 05/24 febrile overnight again. sputum cx from 05/22 showed only yeast. Repeat sputum cx from yesterday pending. BC neg. WBC improving (but has CLL, so correlation to infection is unclear), prolactin improving. Continue zosyn and az ithromycin. - 05/25 afebrile for 24 hours. Both sputum cultures growing only yeast. BC negative. WBC elevated, but has CLL and started prednisone yesterday, so correlation to infection is less reliable. Still requiring HFNC at same rate, but no longer tachypneic. MRSA screen was negative. Stop vancomycin. Continue zosyn and azithromycin and attempt to wean O2. Status: Acute (2) Acute hypoxic respiratory failure: Problem details: This appears to be primarily pneumonia, community-acquired, and secondarily COPD causing hypoxic respiratory failure. On high-flow nasal cannulae. Not retaining CO2. Status: Acute (3) Chronic obstructive pulmonary disease (COPD) suggested by initial evaluation: Problem details: - ipratropium bromide and albuterol nebulizer therapy initiated - Aerobika device - respiratory therapy consult - 05/23 Not yet on systemic steroids for COPD as patient is not clinically obviously having a COPD exacerbation with marked diminished breath sounds or significant wheezing. - 05/24 significant wheezing today. Start oral steroids. - 05/25 wheezing improved. Continue oral steroids and monitoring of WBC daily. Status: Acute (4) Chronic lymphocytic leukemia: Problem details: Not neutropenic. Expected lymphocytosis Status: Acute (5) Abnormal EKG: Problem details: ST depression with sinus tachycardia. Normal troponin and pro-BNP. No previous electrocardiogram to compare. Echocardiogram is unremarkable. Low-dose metoprolol started and then stopped due to low blood pressure. Status: Acute (6) Thyroid function test abnormal: Problem details: Mildly suppressed TSH with normal free T4. Likely due to acute illness. Outpatient follow-up. Status: Acute (7) ETOH abuse: Problem details: episodic binge drinking history Status: Acute (8) Tobacco dependence: Problem details: - 05/20/2023: 1/2 ppd for 40 years, actively smoking still. - nicotine patch and nicotine gum while in hospital Status: Acute Plan VTE prophylaxis with TEDs + SCDs. Prophylactic enoxaparin is on hold due to thrombocytopenia. Subjective Time Seen by Provider: 07:50 Date Seen: 05/25/23 Interval history: Muriel is feeling much better today. She states she is less SOB. Exam Narrative: Exam Narrative: General: No acute distress. Awake, more alert, oriented. No pallor. No jaundice. Affect: Bright. Oropharynx: Clear. Mucous membranes moist. Cardiovascular: Regular rate and rhythm. No murmurs, gallops, or rubs. Respiratory: No respiratory distress, no tachypnea. Coarse, no crackles, wheezes or tightness. Abdomen: Bowel sounds present. Soft, nondistended, nontender. Extremities: No pedal edema. Const: Vital Signs, click to edit/add: Vital Signs - 24 hr 05/24/23 13:00 05/24/23 15:00 05/24/23 15:00 Temperature 98.4 F Pulse Rate Pulse Rate [Pulse Oximeter] 95 Respiratory Rate 30 H Blood Pressure [Ri [facility] Radial Artery] 107/74 Pulse Oximetry 92 Oxygen Delivery Me thod High Flow Nasal Ca nnula Oxygen Flow Rate 30 Fraction of Inspir ed Oxygen 25 25 25 05/24/23 15:00 05/24/23 15:00 05/24/23 17:00 Temperature Pulse Rate Pulse Rate [Pulse Oximeter] 97 Respiratory Rate 30 H 30 H Blood Pressure [Ri [facility] Radial Artery] Pulse Oximetry 92 Oxygen Delivery Me thod High Flow Nasal Ca nnula Oxygen Flow Rate 30 Fraction of Inspir ed Oxygen 25 25 05/24/23 18:00 05/24/23 19:00 05/24/23 19:00 Temperature 99.6 F Pulse Rate 91 Pulse Rate [Pulse Oximeter] 100 Respiratory Rate 20 Blood Pressure [Ri [facility] Radial Artery] 111/64 Pulse Oximetry 91 Oxygen Delivery Me thod High Flow Nasal Ca nnula Oxygen Flow Rate 30 Fraction of Inspir ed Oxygen 25 25 05/24/23 19:00 05/24/23 23:00 05/24/23 23:00 Temperature 99.6 F 98.4 F Pulse Rate Pulse Rate [Pulse Oximeter] 100 95 Respiratory Rate 20 21 Blood Pressure [[facility] Radial Artery] 111/64 98/59 L Pulse Oximetry 91 91 Oxygen Delivery Me thod High Flow Nasal Ca nnula High Flow Nasal Ca nnula Oxygen Flow Rate 30 30 Fraction of Inspir ed Oxygen 25 25 25 05/24/23 23:00 05/24/23 23:00 05/24/23 23:00 Temperature 98.8 F Pulse Rate Pulse Rate [Pulse Oximeter] 103 H 103 H Respiratory Rate 24 22 Blood Pressure [[facility] Radial Artery] 110/71 Pulse Oximetry 92 91 Oxygen Delivery Me thod High Flow Nasal Ca nnula High Flow Nasal Ca nnula Oxygen Flow Rate 30 30 Fraction of Inspir ed Oxygen 25 25 05/25/23 01:00 05/25/23 02:00 05/25/23 03:00 Temperature 98.8 F Pulse Rate 103 H Pulse Rate [Pulse Oximeter] 103 H Respiratory Rate 24 Blood Pressure [[facility] Radial Artery] 110/71 Pulse Oximetry 89 Oxygen Delivery Me thod High Flow Nasal Ca nnula Oxygen Flow Rate 30 Fraction of Inspir ed Oxygen 25 25 05/25/23 03:00 05/25/23 03:00 05/25/23 05:00 Temperature 98.8 F Pulse Rate Pulse Rate [Pulse Oximeter] 103 H Respiratory Rate 24 Blood Pressure [[facility] Radial Artery] 110/71 Pulse Oximetry 92 Oxygen Delivery Me thod High Flow Nasal Ca nnula Oxygen Flow Rate 30 Fraction of Inspir ed Oxygen 25 25 25 05/25/23 07:00 05/25/23 07:00 05/25/23 07:00 Temperature 97.9 F Pulse Rate Pulse Rate [Pulse Oximeter] 91 91 Respiratory Rate 22 22 Blood Pressure [[facility] Radial Artery] 117/80 Pulse Oximetry 93 Oxygen Delivery Me thod High Flow Nasal Ca nnula Oxygen Flow Rate 30 Fraction of Inspir ed Oxygen 25 25 05/25/23 07:00 05/25/23 09:00 Temperature Pulse Rate Pulse Rate [Pulse Oximeter] Respiratory Rate 24 Blood Pressure [Ri ght Radial Artery] Pulse Oximetry 93 Oxygen Delivery Me thod High Flow Nasal Ca nnula Oxygen Flow Rate 30 Fraction of Inspir ed Oxygen 25 25 Labs Labs: Laboratory Results - last 24 hr 05/24/23 05/24/23 05/25/23 07:23 12:55 06:44 WBC 102.62 H* RBC 3.26 L Hgb 10.3 L Hct 32.0 L MCV 98 MCH 32 MCHC 32 RDW Coeff of Hien 15.1 Plt Count 85 L Neut % (Auto) 4.8 L Lymph % (Auto) 90.3 H Shannon % (Auto) 4.7 Eos % (Auto) 0.0 Baso % (Auto) 0.0 Neut # (Auto) 4.90 Lymph # (Auto) 92.70 H Shannon # (Auto) 4.80 H Eos # (Auto) 0.00 Baso # (Auto) 0.00 Abs Immat Gran (auto) 0.20 Imm/Tot Granulo (auto) 0.2 Diff Slide Review Acceptable Review Sodium 133 L 134 L Potassium 4.1 4.1 Chloride 109 108 Carbon Dioxide 17 L 18 L Anion Gap 7 8 BUN 14 12 Creatinine 0.8 0.6 Estimated Creat Clear 54.32 54.32 Estimated GFR 80 98 Glucose 80 111 Calcium 7.5 L 7.5 L C-Reactive Protein 7.2 H Procalcitonin 10.40 H 5.21 H Lab Acknowledgement Test Added
[2023-05-25] MEDS: PIPERACILLIN/TAZOBACTAM 3.375 GM in 0.9 % SODIUM CHLORIDE Mini-bag 100 ML IVPB ×3 (14:05→22:09)
[2023-05-25] MEDS: 0.9 % SODIUM CHLORIDE 250 ml IV (14:05)
--- NOTE | 2023-05-25 15:47 | PC.NURSE ---
Shift Note: Pt much more alert and active today. Ate most of breakfast, eggs, yogurt, fruit, and juice. VSS, she was transitioned to NC this afternoon at 3L/O2 and was able to shower with SBA. She tolerated this activity well. Encouraged TCDB and aerobika use. Tele= NSR
[2023-05-25] MEDS: NICOTINE 14 mg PATCH 1 PATCH TRANSDERMA (21:00)
--- NOTE | 2023-05-25 22:57 | PC.NURSE ---
Shift [id number]- Patient is weaned down to 3L O2 nasal cannula then to 2L O2 with saturations in low 90s%. Patient is conversant and awake this evening. She is up with walker and SBA and tolerates well. She is somewhat tachypneic with exertion. Poor appetite. Occasional cough.
[2023-05-26] VITALS (7 sets, daily range): BP systolic 115–131; BP diastolic 76–86; PULSE 76–87; RESP 20–24; TEMP 36.5–37.1; O2SAT 92–97
[2023-05-26] MEDS: PIPERACILLIN/TAZOBACTAM 3.375 GM in 0.9 % SODIUM CHLORIDE Mini-bag 100 ML IVPB ×3 (02:25→10:46)
[2023-05-26] MEDS: IPRAT-ALBUT 0.5-2.5 MG/3 ML NEB 1 NEB IH ×2 (02:25→08:11)
[2023-05-26 06:18] LABS: Hemoglobin* 9.9 gm/dL (12.0-16.0); Immature Granulocytes Pct Auto 0.3 %; Mean Corpuscular HGB Conc 32 gm/dL (32-36); Mean Corpuscular Hemoglobin 31 pg (26-34); Mean Corpuscular Volume 98 fL (80-100); Monocytes Percent Auto 1.8 % (0.0-11.0); Neutrophils Percent Auto 4.9 % (42.0-72.0); Platelet Count* 116 K/uL (140-440); RDW Coefficient of Variation % 15.2 % (11.5-15.5); Red Blood Count 3.16 m/uL (4.00-5.20)
[2023-05-26 06:24] LABS: Chloride* 111 mmol/L (96-114); Slide Review Reflex No; Sodium* 138 mmol/L (135-149); White Blood Count* 115.44 K/uL (4.50-11.00)
[2023-05-26 06:25] LABS: Potassium* 3.3 mmol/L (3.6-5.1)
[2023-05-26 06:27] LABS: Anion Gap 7 mEq/L (7-15); Blood Urea Nitrogen* 18 mg/dL (7-30); Carbon Dioxide* 20 mmol/L (20-32); Creatinine* 0.7 mg/dL (0.5-1.5); Est. Creatinine Clearance* 54.32; Estimated Glomerular Filt Rate 94 ml/min
[2023-05-26 06:28] LABS: Calcium* 7.4 mg/dL (8.4-10.6); Glucose* 115 mg/dL (60-115)
--- NOTE | 2023-05-26 06:42 | PC.NURSE ---
Shift note: Awake and alert, ambulates independently/SBA, no c/o pain, afebrile overnight. O2 sats 92% via 2L NC
[2023-05-26 07:47] LABS: Lab Add On Test New Spec Needed
[2023-05-26 07:49] LABS: Ionized Calcium* 1.08 mmol/L (1.11-1.30)
[2023-05-26] MEDS: OMEPRAZOLE 20 MG CAPSULE DR PO (08:11)
[2023-05-26] MEDS: MULTIVITAMIN/MINERALS 1 TABLET 1 TAB PO (08:12)
[2023-05-26] MEDS: METOPROLOL TARTRATE 25 MG TABLET PO (08:12)
[2023-05-26] MEDS: SODIUM CHLORIDE 0.9 % (FLUSH) 10 ML SYRINGE 5 ML IVF (08:12)
[2023-05-26] MEDS: predniSONE 20 MG TABLET 40 MG PO (08:13)
[2023-05-26] MEDS: POTASSIUM BICARB 25 MEQ EFFERVESCENT TAB PO ×2 (08:13→10:46)
[2023-05-26 08:21] LABS: Magnesium* 2.2 mg/dL (1.5-2.6)
--- NOTE | 2023-05-26 10:36 | RESP.RT ---
This AM patient was weaned of Oxygen. On Room Air SaO2 91-93%, breathing regular/easy. Patient has good force full cough clearing secretions when present. Discussed with patient the importance of using IS and Aerobika to assist in secretion mobilization and promoting good cough. Patient understands, and is using both to good effect. Patient was walked over 200 feet on room air, SaO2 remained 92-93%, patient stated no SOB during walk, and it felt good to be up and about.
--- NOTE | 2023-05-26 10:55 | P.DS_ITS ---
DS: Providers Provider Time Seen by Provider: :20 Date Seen: 05/26/23 Date of admission: 05/20/23 23:00 Primary care physician: Not a Local Provider Admitting Clinician: Edward Elizondo MD Consults: 05/20/23 22:31 Consult to Respiratory Therapy [CONS] Routine Comment: Reason(s) for RT Consult:: Consult Comment: tobacco dependent; COPD by exam; CAP; needs Aerobika Attending Physician on discharge: Patti Marks MD Date of Discharge: 05/26/23 DS: Diagnosis Discharge Diagnosis (1) Hypokalemia: Status: Resolved Problem details: 05/23: Potassium 3.1; will replace - 05/24 K is 4.1 (2) ETOH abuse: Status: Acute Problem details: episodic binge drinking history (3) GI bleeding: Status: Acute Problem details: hemoccult positive stool May 21 - Will need outpatient colonoscopy (4) Abnormal EKG: Status: Acute Problem details: ST depression with sinus tachycardia. Normal troponin and pro-BNP. No previous electrocardiogram to compare. Echocardiogram is unremarkable. Low-dose metoprolol started. (5) Thyroid function test abnormal: Status: Acute Problem details: Mildly suppressed TSH with normal free T4. Likely due to acute illness. Outpatient follow-up. (6) Dehydration: Status: Resolved Problem details: - was given gentle IV hydration (7) Chronic lymphocytic leukemia: Status: Acute Problem details: Not neutropenic. Expected lymphocytosis (8) Tobacco dependence: Status: Acute Problem details: - 05/20/2023: 1/2 ppd for 40 years, actively smoking still. - nicotine patch and nicotine gum while in hospital - Recommended quitting (9) Chronic obstructive pulmonary disease (COPD) suggested by initial evaluation: Status: Acute Problem details: - ipratropium bromide and albuterol nebulizer therapy initiated - Aerobika device - respiratory therapy consult - 05/23 Not yet on systemic steroids for COPD as patient is not clinically obviously having a COPD exacerbation with marked diminished breath sounds or significant wheezing. - 05/24 significant wheezing today. Started 3 day burst of prednisone 40 mg daily. - 05/25 wheezing improved. - 05/26 wheezing resolved. No longer hypoxic. (10) Acute hypoxic respiratory failure: Status: Resolved Problem details: This appears to be primarily pneumonia, community-acquired, and secondarily COPD causing hypoxic respiratory failure. Off high-flow nasal cannulae. Not retaining CO2. (11) Pneumonia: Status: Acute Problem details: - community-acquired pneumonia treatment protocol with ceftriaxone and azithromycin started 05/20/2023. Nasal swab for MRSA is negative. Attention to atypical infectious causes due to immune suppression from CLL. Id consult by phone. Patient appears in more distress and more ill than would be expected for the relatively mild radiographic changes of bibasilar infiltrates. Broaden antibiotic spectrum to include Pseudomonas if getting worse. Respiratory viral panel, beta D glucan, sputum culture, Legionella and strep pneumonia antigen pending. - 05/23: febrile overnight; will obtain blood cx, lactate, procal, UA, repeat CXR. MRSA screen negative. Start zosyn; dc ceftriaxone; continue azithromycin. Strep pneumo and legionella antigen negative. Will obtain Sputum cx/gram stain. - 05/24 febrile overnight again. sputum cx from 05/22 showed only yeast. Repeat sputum cx from yesterday pending. BC neg. WBC improving (but has CLL, so correlation to infection is unclear), prolactin improving. Continue zosyn and azithromycin. - 05/25 afebrile for 24 hours. Both sputum cultures growing only yeast. BC negative. WBC elevated, but has CLL and started prednisone yesterday, so correlation to infection is less reliable. Still requiring HFNC at same rate, but no longer tachypneic. MRSA screen was negative. Stop vancomycin. Continue zosyn and azithromycin and attempt to wean O2. - 05/26 finished course of azithromycin. Off O2. Doing well. Discharging home today. Will give Augmentin to finish out 10 days of antibiotics. DS: Summary Hospital Course Hospital Course: This is a 67-year-old female with history of CLL who presented through the emergency department for a productive cough, shortness of breath and fatigue that had been evolving over 4 days. She described mucopurulent sputum production without hemoptysis. She had been fatiguing easily and having dyspnea with moderate exertion which is unusual for her. She had an elevated temperature of 101.5? F upon presentation. She has not had any travel other t nicole driving from [facility], where she lives, here to watch her grandchildren. She had no PE on CT chest, but did have patchy consolidation in the right lower lobe consistent with pneumonia along with diffuse bronchial wall thickening in the lung bases with foci of mucous plugging compatible with bronchitis. She also had subsegmental atelectasis within the medial right middle lobe and inferior lingula, possibly sequela of chronic atypical infection. She was also noted to be dehydrated upon presentation. She was admitted for treatment of pneumonia with ceftriaxone and azithromycin as well as gentle hydration for dehydration. She was hypoxic upon presentation for which she was initially on a nasal cannula, but quickly required high-flow nasal cannula. There was no CO2 retention noted. She developed sepsis for which her regimen of antibiotics was expanded to Zosyn plus azithromycin plus vancomycin. A nasal swab was done and was negative for MRSA. Infectious Disease was consulted by phone. Next hospital day after expanding coverage, she was very tight and wheezy for which she was started on oral prednisone daily. Since MRSA screen was negative, vancomycin was discontinued. Patient then improved rapidly and had rapid improvement in oxygen needs. She was transition to oxygen via nasal cannula and then on to room air. She has been able to remain on room air even with ambulation today and is discharged home in improved condition off oxygen. I have given her Augmentin to finish out a total of 10 day course of antibiotics for severe pneumonia. She will need repeat imaging as an outpatient to ensure resolution. Please also see above for further details of diagnoses related to this hospital stay. Time Spent with Patient Time attestation: Total time spent providing and/or coordinating discharge services: Exam Narrative: Exam Narrative: General: No acute distress. Awake, more alert, oriented. No pallor. No jaundice. Standing up and walking independently without difficulty. Affect: Bright. Oropharynx: Clear. Mucous membranes moist. Cardiovascular: Regular rate and rhythm. No murmurs, gallops, or rubs. Respiratory: No respiratory distress, no tachypnea. Clear to auscultation bilaterally. No crackles or wheezes Const: Vital Signs, click to edit/add: Vital Signs - 24 hr 05/25/23 11:00 05/25/23 11:00 05/25/23 11:00 Temperature 98.3 F Pulse Rate Pulse Rate [Pulse Oximeter] 83 Respiratory Rate 22 Blood Pressure [Ri ght Radial Artery] 116/78 Pulse Oximetry 94 94 Oxygen Delivery Me thod High Flow Nasal Ca nnula Oxygen Flow Rate 30 Fraction of Inspir ed Oxygen 25 25 05/25/23 13:00 05/25/23 15:10 05/25/23 15:10 Temperature 99 F Pulse Rate Pulse Rate [Pulse Oximeter] 96 Respiratory Rate 20 Blood Pressure [Ri ght Radial Artery] 118/74 Pulse Oximetry 95 95 Oxygen Delivery Me thod Nasal Cannula Nasal Cannula Oxygen Flow Rate 3 3 Fraction of Inspir ed Oxygen 25 05/25/23 16:11 05/25/23 19:05 05/25/23 23:00 Temperature 97.6 F Pulse Rate 87 877 H Pulse Rate [Pulse Oximeter] 91 Respiratory Rate 20 Blood Pressure [Ri ght Radial Artery] 119/71 Pulse Oximetry 92 Oxygen Delivery Me thod Nasal Cannula Oxygen Flow Rate 2 Fraction of Inspir ed Oxygen 05/25/23 23:00 05/25/23 23:00 05/25/23 23:00 Temperature 98.3 F Pulse Rate Pulse Rate [Pulse Oximeter] 79 79 Respiratory Rate 20 20 20 Blood Pressure [Ri ght Radial Artery] 116/75 Pulse Oximetry 92 92 Oxygen Delivery Me thod Nasal Cannula Nasal Cannula Oxygen Flow Rate 2 2 Fraction of Inspir ed Oxygen 05/26/23 03:00 05/26/23 07:06 05/26/23 08:07 Temperature 97.7 F 98.6 F Pulse Rate 76 Pulse Rate [Pulse Oximeter] 82 86 Respiratory Rate 20 24 Blood Pressure [Ri ght Radial Artery] 122/81 131/86 Pulse Oximetry 92 95 Oxygen Delivery Me thod Nasal Cannula Nasal Cannula Oxygen Flow Rate 2 1 Fraction of Inspir ed Oxygen 05/26/23 08:21 05/26/23 08:24 05/26/23 10:33 Temperature Pulse Rate Pulse Rate [Pulse Oximeter] Respiratory Rate 22 Blood Pressure [Ri ght Radial Artery] Pulse Oximetry 97 94 93 Oxygen Delivery Me thod Room Air Room Air Room Air Oxygen Flow Rate Fraction of Inspir ed Oxygen DS: Data Data Completed and Pending Completed studies during hospitalization: 05/20/2023 EKG: Sinus tachycardia, heart rate 137 beats per minute, incomplete right bundle-branch block, ST and T-wave abnormalities in the inferior and ant erior leads. No previous EKG available for comparison. 05/21/2023 EKG: Sinus tachycardia, 113 beats per minute, incomplete right bundle-branch block, ST and T-wave abnormalities in the inferior and anterolateral leads. No change when compared with 05/20/2023, except decreased heart rate. 05/22/2023 echocardiogram: Technically limited exam. Normal LV size, not well visualized wall thickness, hyperdynamic global systolic function with an estimated EF of 70-75%. Right ventricular cavity size is normal, global systolic RV function is normal. No significant functional valve disease detec norris. Ordering Physician: Jhon Holly M.D. Date of Service: 05/20/23 Procedure(s): XR chest 2V Accession Number(s): [id number] cc: Jhon Holly M.D.; Provider,Not a Local~ For Patients: As a result of the Cures Act, medical imaging exams and procedure reports are released immediately into your electronic medical record. You may view this report before your referring provider. If you have questions, please contact your health care provider. INDICATION: Cough, fever, shortness of breath TECHNIQUE: Chest 2 view. Permanently recorded images are archived. COMPARISON: None. FINDINGS: Cardiovascular and mediastinum: Atherosclerotic thoracic aorta. Normal heart size. Lungs and pleural spaces: Patchy area of consolidation is left lower lobe and also likely in the lingula and right middle lobe. No definite pleural effusion. No pneumothorax. Bones and soft tissues: Unremarkable for age. IMPRESSION: Left lower lobe, and likely lingular and right middle lobe, pneumonia. Recommend follow-up imaging after treatment to ensure resolution. Dictated by Xiang Lee MD @ 05/20/2023 8:23:26 PM (Electronically Signed) Ordering Physician: Jhon Holly M.D. Date of Service: 05/20/23 Procedure(s): CT angio chest PE protocol Accession Number(s): [id number] cc: Jhon Holly M.D.; Provider,Not a Local~ For Patients: As a result of the Cures Act, medical imaging exams and procedure reports are released immediately into your electronic medical record. You may view this report before your referring provider. If you have questions, please contact your health care provider. INDICATION: Shortness of breath. TECHNIQUE: CT chest PE was acquired with 95 cc Isovue 370 IV contrast. Permanently recorded images are archived. COMPARISON: None. FINDINGS: Heart and vasculature: Contrast opacification of the pulmonary arterial tree is adequate. No sign of pulmonary embolism. Heart size is normal. Thoracic aorta and pulmonary artery are normal in caliber. Lungs and pleura: Subsegmental atelectasis within the medial right middle lobe and inferior lingula. Patchy consolidation in the right lower lobe. No pleural effusion or pneumothorax. Diffuse bronchial wall thickening in the lung bases with foci of mucous plugging. No pleural effusions or pneumothorax. Lymph nodes/mediastinum: Prominent bihilar and mediastinal lymph nodes. No pathologically enlarged lymph nodes. Chest wall: No masses. Thyroid: Unremarkable. Upper abdomen: No acute or significant findings. 2 cm masslike thickening of the left adrenal gland likely represents a lipid rich adenoma. Bones: Unremarkable for age. IMPRESSION: No pulmonary embolism. Patchy consolidation in the right lower lobe compatible with pneumonia. Diffuse bronchial wall thickening in the lung bases, with foci of mucous plugging, compatible with bronchitis. Subsegmental atelectasis within the medial right middle lobe and inferior lingula, possibly sequela of chronic atypical infection. Please note that all CT scans at this facility use dose modulation, iterative reconstruction, and/or weight-based dosing when appropriate to reduce radiation dose to as low as reasonably achievable. Dictated by Xiang Lee MD @ 05/20/2023 10:06:36 PM (Electronically Signed) Ordering Physician: Moise Jacobson M.D. Date of Service: 05/22/23 Procedure(s): XR chest 1V portable Accession Number(s): [id number] cc: Moise Jacobson M.D.; Provider,Not a Local~ For Patients: As a result of the Century Cures Act, medical imaging exams and procedure reports are released immediately into your electronic medical record. You may view this report before your referring provider. If you have questions, please contact your health care provider. INDICATION: Follow-up pneumonia. TECHNIQUE: Chest 1 views. COMPARISON: 05/20/[address] FINDINGS: Normal cardiomediastinal silhouette and pulmonary vasculature. Lungs are well inflated. Persistent bibasilar airspace opacities, which are similar in appearance compared to 05/20/2023. No new focal consolidation. No pleural effusion. No pneumothorax. No acute osseous abnormality. IMPRESSION: Similar appearance of bibasilar airspace opacities compared to 05/20/2023. Dictated by Abigail Diop MD @ 05/22/2023 8:00:07 AM (Electronically Signed) Ordering Physician: Pankaj Mondragon M.D. Date of Service: 05/23/23 Procedure(s): XR chest 1V portable Accession Number(s): [id number] cc: Pankaj Mondragon M.D.; Provider,Not a Local~ For Patients: As a result of the Century Cures Act, medical imaging exams and procedure reports are released immediately into your electronic medical record. You may view this report before your referring provider. If you have questions, please contact your health care provider. INDICATION: FEVER/PNEUMONIA TECHNIQUE: Chest 1 views. COMPARISON: May 22, 2023 FINDINGS: Cardiovascular and mediastinum: Heart size and vasculature are normal in caliber and appearance. Lungs and pleural spaces: Worsening of the previously described left greater than right basilar opacities, concerning for pneumonia. No sign of pleural effusion. No pneumothorax. Bones and soft tissues: No significant findings. IMPRESSION: Worsening of the previously described left greater than right basilar opacities, concerning for pneumonia. Dictated by Amor Villalobos MD @ 05/23/2023 9:24:55 AM (Electronically Signed) Labs on day of discharge: Labs from last 24 hours 05/26/23 05/26/23 05/26/23 07:43 07:31 05:46 WBC 115.44 H* RBC 3.16 L Hgb 9.9 L Hct 31.0 L MCV 98 MCH 31 MCHC 32 RDW Coeff of Hien 15.2 Plt Count 116 L Neut % (Auto) 4.9 L Lymph % (Auto) 93.0 H [place] % (Auto) 1.8 Eos % (Auto) 0.0 Baso % (Auto) 0.0 Neut # (Auto) 5.70 Lymph # (Auto) 107.40 H [place] # (Auto) 2.10 H Eos # (Auto) 0.00 Baso # (Auto) 0.00 Abs Immat Gran (auto) 0.30 Imm/Tot Granulo (auto) 0.3 Sodium 138 Potassium 3.3 L Chloride 111 Carbon Dioxide 20 Anion Gap 7 BUN 18 Creatinine 0.7 Estimated Creat Clear 54.32 Estimated GFR 94 Glucose 115 Calcium 7.4 L Ionized Calcium Delilah 1.08 L Magnesium 2.2 Lab Acknowledgement New Spec Needed Preliminary micro results at discharge 05/23/23 08:05 Blood Culture - Preliminary Blood NO GROWTH AFTER 72 HOURS 05/23/23 08:00 Blood Culture - Preliminary Blood NO GROWTH AFTER 72 HOURS Discharge Plan Discharge Disposition: Home, Self-Care Date of Admission: 05/20/23 23:00 Attending Provider on Discharge: Patti Marks Primary Care Provider: Provider,Not a Local Condition: Unchanged Anticipated Discharge Date/Time: 05/26/23 11:08 Discharge Medications: New omeprazole 20 mg Capsule,Delayed Release(Dr/Ec) 20 mg PO BID Qty: 60 0RF metoprolol tartrate 25 mg Tablet 25 mg PO BID Qty: 60 0RF multivitamin with folic acid [Thera] 400 mcg Tablet 1 tab PO DAILY Qty: 30 0RF albuterol sulfate 90 mcg/actuation HFA aerosol inhaler 2 puff inhalation Q6H PRN (Reason: shortness of breath or wheezing) Qty: 8.5 0RF amoxicillin-pot clavulanate [Augmentin] 500-125 mg tablet 1 tab PO TID 3 Days Qty: 9 0RF Discharge Orders: Discharge Order (Routine); Ordered 05/26/23 Ordered By: Patti Marks Patient Education: Metoprolol (By mouth), Albuterol (By mouth), Omeprazole (By mouth), Amoxicillin/Clavulanate Potassium (By mouth), Multivitamins with Minerals (By mouth), How to Stop Smoking (DC), COPD (Chronic Obstructive Pulmonary Disease) (DC), At-Risk Alcohol Use (DC), Community Acquired Pneumonia (DC) Additional Instructions: 1. Follow up with your PCP, Dr. Montaño, in 5-7 days. Please have your records from our facility sent to your PCP. 2. I recommend imaging in a couple of weeks to ensure resolution of your pneumonia. Your PCP can order this. 3. Your TSH, a thryroid test, was abnormal, which may be due to your recent illness. Your PCP can follow up on this test in a few weeks. 4. You have evidence of COPD, which is due to smoking. I strongly recommend quitting tobacco use. You can use over the counter nicotine replacement therapies as we have been giving you here in the hospital and talk to your PCP if you need additional help. 5. Use Aerobika and IS as taught to you by our respiratory therapist for the next few days to help clear up secretions and improve your breathing. 6. Take all medications as prescribed. 7. You had mildly abnormal liver tests. This may be due to alcohol use. I recommend you abstain from alcohol use and follow up with your PCP for repeat tests. 8. You had a test that indicated there is a small amount of blood in your stool. Please work with your PCP to set up a diagnostic colonoscopy. 9. Follow up with your oncologist this week for CLL, leukocytosis. Activity Level: No Restrictions Discharge Diet: Regular Follow Up Appointments: Provider,Not a Local [Primary Care Provider] - 05/28/23 1:05 pm (Dhaval Slaughter CNP [facility]. Belia Aparicio [email or web address] [address] [place] [address] ) Forms: [employer] Info Instructions
--- NOTE | 2023-05-26 13:44 | PC.NURSE ---
Pt alert and oriented. Pt had no complaints of pain. Pt independent in room. Pt on RA since 0800 saturations low to mid 90's. Pt up walking in hallways and maintained 93%. Pt's IV removed;catheter intact. Pt's nicotine patch removed and discarded. Pt discharged home with .
== END 2023-05-26 13:40 | disposition home or self-care (01) | DRG 189 ==
LOC: ED 21:20 → MEDSURG 22:44
PROVIDERS: Family Medicine; Hospitalist; Admitting Provider Internal Medicine; Emergency Provider Emergency Medicine Emergency Medical Services; Visit Provider Internal Medicine
DX: J96.01 Acute respiratory failure with hypoxia (principal); J18.9 Pneumonia, unspecified organism; A41.9 Sepsis, unspecified organism; C91.10 Chronic lymphocytic leukemia of B-cell type not having achieved remission; J44.0 Chronic obstructive pulmonary disease with (acute) lower respiratory infection; J98.11 Atelectasis; R00.0 Tachycardia, unspecified; E87.6 Hypokalemia; E86.0 Dehydration; R94.31 Abnormal electrocardiogram [ECG] [EKG]; F10.10 Alcohol abuse, uncomplicated; F17.210 Nicotine dependence, cigarettes, uncomplicated; R94.6 Abnormal results of thyroid function studies
CPT/HCPCS: 36415; 71045; 71046; 71275; 80048; 80053; 80061; 81003; 81015; 82232; 82270; 82330; 82803; 83605; 83735; 83880; 84100; 84145; 84439; 84443; 84484; 85025; 85379; 86140; 87040; 87070; 87081; 87086; 87449; 87493; 87631; 87632; 87899; 93005; 93306; 94640; 94664; 94761; 99285; A9153; A9270; C9113; J0456; J0610; J0696; J1650; J2543; J3370; J7030; J7050; J7120; J7512; P9047; Q9967; S4990